=== PATIENT | male | born 1950 | race Caucasian/White ===

== ENCOUNTER → 2018-06-25 | Outpatient (CLI) | payer MEDICAID ==
[~2018-06-25] MED LIST: APIX5TAB PO; ASCO500C15 PO; AVOD0.5CAP PO; CIPR500T4 PO; FESO8TAB PO; FEXO-46 PO; IMIPRAM; LISI-556 PO; LOVA20TA2 PO; MELO7.5T46 PO; NF-VITD400 PO; PHEN-639 PO; STOOL SOFTENER; TAMS0.4C2 PO
[2018-06-25 13:00] LABS: CHLORIDE 96 MMOL/L (98-107); POTASSIUM 4.1 MMOL/L (3.6-5.0); SODIUM 136 MMOL/L (135-145)
[2018-06-25 13:01] LABS: BUN/CREATININE RATIO 22; CALCIUM 9.3 MG/DL (8.5-10.1); CARBON DIOXIDE 23 MMOL/L (21-32); CREATININE SERUM 1.15 MG/DL (0.60-1.30); GFR ESTIMATED > 60; GLUCOSE 89 MG/DL (70-105)
== END ==
LOC: LAB FS 09:04
PROVIDERS: ATTEND Urology
DX: N40.0 Benign prostatic hyperplasia without lower urinary tract symptoms (principal); N39.0 Urinary tract infection, site not specified
CPT/HCPCS: 36415; 80048; 87088

== ENCOUNTER → 2018-10-26 | Outpatient (CLI) | payer MEDICAID ==
[2018-10-26 11:23] LABS: BUN/CREATININE RATIO 29; CALCIUM 8.9 MG/DL (8.5-10.1); CARBON DIOXIDE 24 MMOL/L (21-32); CHLORIDE 92 MMOL/L (98-107); CREATININE SERUM 0.99 MG/DL (0.60-1.30); GFR ESTIMATED > 60; GLUCOSE 88 MG/DL (70-105); POTASSIUM 4.5 MMOL/L (3.6-5.0); SODIUM 129 MMOL/L (135-145)
== END ==
LOC: LAB FS 10:28
PROVIDERS: ATTEND Urology
DX: E87.1 Hypo-osmolality and hyponatremia (principal)
CPT/HCPCS: 36415; 80048

== ENCOUNTER 2019-02-01 10:35 | Outpatient (RCR) | payer MEDICAID ==
[2018-11-09 12:23] LABS: CHLORIDE 98 MMOL/L (98-107); POTASSIUM 4.4 MMOL/L (3.6-5.0); SODIUM 136 MMOL/L (135-145)
[2018-11-09 12:24] LABS: BUN/CREATININE RATIO 18; CALCIUM 9.4 MG/DL (8.5-10.1); CARBON DIOXIDE 26 MMOL/L (21-32); CREATININE SERUM 1.03 MG/DL (0.60-1.30); GFR ESTIMATED > 60; GLUCOSE 106 MG/DL (70-105)
[2018-11-23 11:38] LABS: BUN/CREATININE RATIO 29; CARBON DIOXIDE 23 MMOL/L (21-32); CHLORIDE 99 MMOL/L (98-107); CREATININE SERUM 0.92 MG/DL (0.60-1.30); GFR ESTIMATED > 60; GLUCOSE 113 MG/DL (70-105); POTASSIUM 4.3 MMOL/L (3.6-5.0); SODIUM 136 MMOL/L (135-145)
[2018-11-23 11:39] LABS: CALCIUM 9.1 MG/DL (8.5-10.1)
[2018-12-07 11:16] LABS: BUN/CREATININE RATIO 23; CARBON DIOXIDE 23 MMOL/L (21-32); CHLORIDE 96 MMOL/L (98-107); CREATININE SERUM 1.03 MG/DL (0.60-1.30); GFR ESTIMATED > 60; POTASSIUM 4.3 MMOL/L (3.6-5.0); SODIUM 135 MMOL/L (135-145)
[2018-12-07 11:17] LABS: GLUCOSE 103 MG/DL (70-105)
[2018-12-22 11:17] LABS: BUN/CREATININE RATIO 34; CARBON DIOXIDE 25 MMOL/L (21-32); CHLORIDE 102 MMOL/L (98-107); CREATININE SERUM 1.08 MG/DL (0.60-1.30); GFR ESTIMATED > 60; POTASSIUM 4.3 MMOL/L (3.6-5.0); SODIUM 138 MMOL/L (135-145)
[2018-12-22 11:18] LABS: CALCIUM 9.1 MG/DL (8.5-10.1); GLUCOSE 114 MG/DL (70-105)
[2019-01-04 14:44] LABS: CARBON DIOXIDE 24 MMOL/L (21-32); CHLORIDE 98 MMOL/L (98-107); POTASSIUM 4.4 MMOL/L (3.6-5.0); SODIUM 136 MMOL/L (135-145)
[2019-01-04 14:45] LABS: BUN/CREATININE RATIO 29; CALCIUM 9.9 MG/DL (8.5-10.1); CREATININE SERUM 0.95 MG/DL (0.60-1.30); GFR ESTIMATED > 60; GLUCOSE 127 MG/DL (70-105)
[2019-01-18 12:44] LABS: CARBON DIOXIDE 22 MMOL/L (21-32); CHLORIDE 96 MMOL/L (98-107); POTASSIUM 4.1 MMOL/L (3.6-5.0); SODIUM 130 MMOL/L (135-145)
[2019-01-18 12:45] LABS: BUN/CREATININE RATIO 31; CREATININE SERUM 0.83 MG/DL (0.60-1.30); GFR ESTIMATED > 60; GLUCOSE 117 MG/DL (70-105)
[2019-02-01 11:28] LABS: CHLORIDE 96 MMOL/L (98-107); POTASSIUM 4.6 MMOL/L (3.6-5.0); SODIUM 131 MMOL/L (135-145)
[2019-02-01 11:29] LABS: BUN/CREATININE RATIO 30; CALCIUM 8.8 MG/DL (8.5-10.1); CARBON DIOXIDE 25 MMOL/L (21-32); CREATININE SERUM 0.88 MG/DL (0.60-1.30); GFR ESTIMATED > 60; GLUCOSE 103 MG/DL (70-105)
== END 2019-02-07 | disposition home or self-care (01) ==
LOC: LAB FS 10:35
PROVIDERS: ATTEND Urology
DX: R79.0 Abnormal level of blood mineral (principal)
CPT/HCPCS: 36415; 80048

== ENCOUNTER 2019-02-17 18:56 | Emergency (ER) | payer MEDICAID ==
[~2019-02-17] VITALS: Ht 165.1 cm; Wt 68.3 kg
--- NOTE | 2019-02-17 19:40 | ED EENT ---
History of Present Illness General Chief Complaint: Dental Problems/Pain Stated Complaint: LT SIDE TOOTH BLEEDING Nursing Triage Note: pt. had a tooth pulled by doctor brennan at noon today in [place]. the upper left side first molar was pulled and is still bleeding. Source: patient History of Present Illness Date Seen by Provider: Feb 17, 2019 Time Seen by Provider: 19:40 Initial Comments 68-year-old male presenting with complaint of bleeding from left upper dental extraction. He had a tooth pulled with Dr. Kathya Kim today and has had continued bleeding since the extraction. They have tried holding pressure with gauze at home but he has continued to bleed through that. He was on Eliquis but it was held since Friday. He has a history of atrial fibrillation and that was why he was taking eliquis. He denies any fever or chills. He has no nausea or vomiting. Allergies and Home Medications Allergies Coded Allergies: codeine (Verified Adverse Reaction, Mild, NAUSEA, 09/03/17) Home Medications Apixaban 5 Mg Tablet, 5 MG PO BID, (Reported) Ciprofloxacin HCl 500 Mg Tablet, 500 MG PO BID Prescribed by: FIGUEROA CALVIN on 09/03/17 1146 Dutasteride 0.5 Mg Cap, 0.5 MG PO DAILY, (Reported) Fesoterodine Fumarate 8 Mg Tab.er.24h, 8 MG PO DAILY, (Reported) Lisinopril 5 Mg Tablet, 5 MG PO DAILY, (Reported) Phenazopyridine HCl 100 Mg Tablet, 100 MG PO TID PRN for SPASMS Prescribed by: FIGUEROA CALVIN on 09/03/17 1146 [Imipram] , 75 MG HS, (Reported) Patient Home Medication List Home Medication List Reviewed: Yes Review of Systems Review of Systems Constitutional: No chills, No fever Eyes: No Symptoms Reported Ears: No Symptoms Reported Nose: no symptoms reported Mouth: see HPI Throat: no symptoms reported Respiratory: no symptoms reported Cardiovascular: no symptoms reported Gastrointestinal: no symptoms reported Musculoskeletal: no symptoms reported Past Hxlgibh-Lxwhgq-Ybjkjr Hx Past Med/Social Hx: Reviewed Nursing Past Med/Soc Hx Patient Social History Recent Foreign Travel: No Contact w/Someone Who Travel: No Recent Infectious Disease Expo: No Recent Hopitalizations: No Physical Abuse: No Sexual Abuse: No Mistreated: No Fear: No Seasonal Allergies Seasonal Allergies: Yes Past Medical History Surgeries: Yes Gallbladder Respiratory: No Cardiac: Yes Atrial Fibrillation, Heart Murmur Neurological: No Genitourinary: Yes UTI-Chronic Gastrointestinal: No Musculoskeletal: Yes (STENOSIS OF THE SPINE) Foot Drop Endocrine: Yes (THYROID ISSUES) HEENT: Yes Cataract Psychosocial: No Integumentary: Yes Psoriasis Physical Exam Vital Signs Vital Signs - First Documented 02/17/19 19:00 Temp 35.8 Pulse 70 Resp 16 B/P (MAP) 127/78 (94) Pulse Ox 98 O2 Delivery Room Air Height, Weight, BMI Height: 5'5.00" Weight: 152lbs. oz. [id number]; 25.00 BMI Method:Stated General Appearance: no apparent distress Mouth/Throat: other (bleeding and clot present where he had dental extraction on left upper maxillary area. ) Neck: non-tender Cardiovascular: normal peripheral pulses Progress/Results/Core Measures Results/Orders My Orders Orders - CLIFF SUAREZ MD Nursing Communication (Order) (02/17/19 21:18) Vital Signs/I&O 02/17/19 19:00 Temp 35.8 Pulse 70 Resp 16 B/P (MAP) 127/78 (94) Pulse Ox 98 O2 Delivery Room Air Blood Pressure Mean: 94 POS Progress Progress Note : Progress Note cleaned mouth with sterile water and gauze. Then applied gelfoam and pressure to control bleeding. After 5 minutes of direct pressure with gelfoam in place the bleeding was controlled. I then had him gently rinse his mouth to get blood and clots off his tongue and teeth. By doing this he accidentally dislodged the gelfoam and clot and started bleeding again from his dental extraction. I applied a new piece of gelfoam and applied pressure for 5 minutes again and the bleeding was controlled except for a small amount of oozing towards the buccal surface. Another small piece of Gelfoam was applied and I held direct pressure for 5 minutes which helped obtain better hemostasis. He had a very small amount of blood seeping from the buccal area so a small 2x2 was rolled up and placed for pressure. He was significantly better so he was discharged to home in improved condition. His sister, his DPOA, felt comfortable helping to manage the small amount of residual bleeding. I advised that he could also try a tea bag to help with bleeding if need be. Hold Eliquis for 1 more day and start back on friday. Return or seek medical care if continued problems. Departure Impression Primary Impression: Surgical wound hemorrhage after dental procedure Disposition: 01 HOME, SELF-CARE Condition: Stable Departure-Patient Inst. Decision time for Depature: 21:22 Referrals: SELFDANNA MD (PCP/Family) Primary Care Physician Patient Instructions: Bleeding After Surgery, Tooth Extraction (DC) Add. Discharge Instructions: Keep pressure and gauze in place when awake to help with bleeding. Hold the Eliquis until Friday to let the dental extraction heal before starting the blood thinner back again. All discharge instructions reviewed with patient and/or family. Voiced und erstanding. CLIFF SUAREZ MD Feb 17, 2019 19:40 POS
--- NOTE | 2019-02-17 20:32 | NUR ---
PT. RINSED HIS MOUTH WITH WATER GENTLY TO REMOVE THE BLOOD FROM HIS TONGUE AND THE PATCH DOCTOR DANIELA PLACED CAME OUT AND NOW THE SIGHT IS BLEEDING AGAIN. PT. HAS GAUZE PLACED AT THIS TIME.
[2019-02-17 21:23] VITALS: BP 145/78
--- NOTE | 2019-02-17 21:23 | NUR ---
GEL FOAM WAS USED TO STOP THE BLEEDING. PACKAGE 12-7 MM.
== END 2019-02-17 21:25 | disposition home or self-care (01) ==
LOC: EDUNIT# 18:56 → ER FS 18:57
DX: K91.840 Postprocedural hemorrhage of a digestive system organ or structure following a digestive system procedure (principal); I48.91 Unspecified atrial fibrillation; Z87.442 Personal history of urinary calculi; Z88.5 Allergy status to narcotic agent; Z79.01 Long term (current) use of anticoagulants
CPT/HCPCS: 99282

== ENCOUNTER 2019-04-26 10:35 | Outpatient (RCR) | payer MEDICAID ==
[2019-02-15 11:15] LABS: CALCIUM 9.4 MG/DL (8.5-10.1); CREATININE SERUM 1.2 MG/DL (0.60-1.30); POTASSIUM 4.3 MMOL/L (3.6-5.0)
[2019-03-03 11:51] LABS: BUN/CREATININE RATIO 29; CALCIUM 9.1 MG/DL (8.5-10.1); CARBON DIOXIDE 28 MMOL/L (21-32); CHLORIDE 98 MMOL/L (98-107); CREATININE SERUM 1.02 MG/DL (0.60-1.30); GFR ESTIMATED > 60; GLUCOSE 98 MG/DL (70-105); POTASSIUM 4.1 MMOL/L (3.6-5.0); SODIUM 137 MMOL/L (135-145)
[2019-03-15 11:26] LABS: BUN/CREATININE RATIO 24; CALCIUM 9.2 MG/DL (8.5-10.1); CARBON DIOXIDE 27 MMOL/L (21-32); CHLORIDE 103 MMOL/L (98-107); GFR ESTIMATED > 60; GLUCOSE 108 MG/DL (70-105); POTASSIUM 4.4 MMOL/L (3.6-5.0); SODIUM 138 MMOL/L (135-145)
[2019-04-26 11:10] LABS: BUN/CREATININE RATIO 29; CARBON DIOXIDE 27 MMOL/L (21-32); CHLORIDE 99 MMOL/L (98-107); CREATININE SERUM 1.06 MG/DL (0.60-1.30); GFR ESTIMATED > 60; GLUCOSE 105 MG/DL (70-105); SODIUM 136 MMOL/L (135-145)
== END 2019-05-16 | disposition home or self-care (01) ==
LOC: LAB FS 10:35
PROVIDERS: ATTEND Urology
DX: R79.0 Abnormal level of blood mineral (principal)
CPT/HCPCS: 36415; 80048

== ENCOUNTER 2019-06-15 10:19 | Outpatient (RCR) | payer MEDICAID ==
[2019-05-17 11:27] LABS: CARBON DIOXIDE 27 MMOL/L (21-32); CHLORIDE 100 MMOL/L (98-107); POTASSIUM 4.4 MMOL/L (3.6-5.0); SODIUM 139 MMOL/L (135-145)
[2019-05-17 11:28] LABS: BUN/CREATININE RATIO 26; CALCIUM 9.2 MG/DL (8.5-10.1); CREATININE SERUM 1.03 MG/DL (0.60-1.30); GFR ESTIMATED > 60; GLUCOSE 89 MG/DL (70-105)
[2019-06-15 12:08] LABS: BUN/CREATININE RATIO 28; CALCIUM 9.3 MG/DL (8.5-10.1); CARBON DIOXIDE 29 MMOL/L (21-32); CHLORIDE 99 MMOL/L (98-107); GFR ESTIMATED > 60; GLUCOSE 95 MG/DL (70-105); POTASSIUM 4.4 MMOL/L (3.6-5.0); SODIUM 137 MMOL/L (135-145)
== END 2019-08-15 | disposition home or self-care (01) ==
LOC: LAB FS 10:19
PROVIDERS: ATTEND Urology
DX: R79.0 Abnormal level of blood mineral (principal)
CPT/HCPCS: 36415; 80048

== ENCOUNTER → 2019-09-24 | Outpatient (CLI) | payer MEDICAID ==
[2019-09-24 15:11] LABS: BUN/CREATININE RATIO 28; CALCIUM 8.6 MG/DL (8.5-10.1); CARBON DIOXIDE 20 MMOL/L (21-32); CHLORIDE 91 MMOL/L (98-107); CREATININE SERUM 0.79 MG/DL (0.60-1.30); GFR ESTIMATED > 60; GLUCOSE 116 MG/DL (70-105); POTASSIUM 4.3 MMOL/L (3.6-5.0)
[2019-09-24 15:17] LABS: SODIUM 125 MMOL/L (135-145)
[2019-09-24 15:26] LABS: BACTERIA,URINE TRACE /HPF; BILIRUBIN,URINE NEGATIVE (NEGATIVE); CLARITY,URINE CLEAR; COLOR,URINE YELLOW; GLUCOSE, URINE (UA) NEGATIVE (NEGATIVE); KETONES,URINE NEGATIVE (NEGATIVE); LEUKOCYTE ESTERASE ,URINE NEGATIVE (NEGATIVE); NITRITE,URINE NEGATIVE (NEGATIVE); PROTEIN,URINE NEGATIVE (NEGATIVE)
[2019-09-24 15:27] LABS: CALCIUM OXALATE CRYSTALS,UR MODERATE /LPF
== END ==
LOC: LAB FS 13:38
PROVIDERS: ATTEND Urology
DX: N40.1 Benign prostatic hyperplasia with lower urinary tract symptoms (principal)
CPT/HCPCS: 36415; 80048; 81000; 84153

== ENCOUNTER → 2019-09-30 | Outpatient (CLI) | payer MEDICAID ==
[2019-09-30 15:41] LABS: CHLORIDE 101 MMOL/L (98-107); POTASSIUM 4.4 MMOL/L (3.6-5.0); SODIUM 138 MMOL/L (135-145)
[2019-09-30 15:42] LABS: BUN/CREATININE RATIO 25; CALCIUM 9.2 MG/DL (8.5-10.1); CARBON DIOXIDE 25 MMOL/L (21-32); CREATININE SERUM 0.96 MG/DL (0.60-1.30); GFR ESTIMATED > 60; GLUCOSE 108 MG/DL (70-105)
== END ==
LOC: LAB FS 14:38
PROVIDERS: ATTEND Urology
DX: E87.8 Other disorders of electrolyte and fluid balance, not elsewhere classified (principal)
CPT/HCPCS: 36415; 80048

== ENCOUNTER 2020-06-04 14:31 | Emergency (ER) | payer MEDICAID ==
[~2020-06-04] VITALS: Ht 167.7 cm; Wt 74.4 kg
[~2020-06-04 14:31] MED LIST changes: -ASCO500C15 PO; +ASCO500C18 PO; -CIPR500T4 PO; +CIPR500T5 PO; -LISI-556 PO; +LISI-729 PO
[2020-06-04] MEDS ORDERED: fentaNYL INJECTION 100 MCG/2 ML AMP IVP ONE (15:00)
[2020-06-04] MEDS ORDERED: ONDANSETRON 4 MG/2 ML (SDV) Z0FRAN IVP ONE (15:00)
[2020-06-04 15:08] LABS: HEMATOCRIT 47 % (40-54); HEMOGLOBIN 16.1 G/DL (13.3-17.7); LYMPHOCYTES % (AUTO) 3 % (12-44); MEAN CORPUSCULAR HEMOGLOBIN 32 PG (25-34); MEAN CORPUSCULAR HGB CONC 34 G/DL (32-36); MEAN CORPUSCULAR VOLUME 94 FL (80-99); MEAN PLATELET VOLUME 9.5 FL (7.4-10.4); MONOCYTES % (AUTO) 5 % (0-12); NEUTROPHILS % (AUTO) 91 % (42-75); PLATELET COUNT 278 10^3/uL (130-400); WHITE BLOOD COUNT 15.7 10^3/uL (4.3-11.0)
[2020-06-04 15:09] LABS: BASOPHILS % (AUTO) 0 % (0-10); EOSINOPHILS % (AUTO) 0 % (0-10); LYMPHOCYTES # (AUTO) 0.5 X 10^3 (1.0-4.0); MONOCYTES # (AUTO) 0.8 X 10^3 (0.0-1.0); NEUTROPHILS # (AUTO) 14.3 X 10^3 (1.8-7.8)
[2020-06-04 15:24] LABS: LYMPHOCYTES % (MANUAL) 2 %; MONOCYTES % (MANUAL) 4 %; NEUTROPHILS % (MANUAL) 94 %; RBC MORPH NORMAL
[2020-06-04 15:34] LABS: CHLORIDE 100 MMOL/L (98-107); POTASSIUM 4.6 MMOL/L (3.6-5.0); SODIUM 139 MMOL/L (135-145)
[2020-06-04 15:35] LABS: ALANINE AMINOTRANSFERASE 40 U/L (0-55); ALBUMIN 4.3 GM/DL (3.2-4.5); ALKALINE PHOSPHATASE 76 U/L (40-136); BILIRUBIN,TOTAL 0.7 MG/DL (0.1-1.0); BUN/CREATININE RATIO 35; CALCIUM 9.1 MG/DL (8.5-10.1); CARBON DIOXIDE 25 MMOL/L (21-32); CREATININE SERUM 0.94 MG/DL (0.60-1.30); GFR ESTIMATED > 60; GLUCOSE 156 MG/DL (70-105); TOTAL PROTEIN 7.6 GM/DL (6.4-8.2)
--- NOTE | 2020-06-04 15:42 | Diagnostic Imaging Report ---
INDICATION: Trauma, status post fall, caught left arm in wheelchair x 7 hours ago. TECHNIQUE: Single view chest, 3:12 p.m. CORRELATION STUDY: None. FINDINGS: Heart size is enlarged. Vasculature overall within normal limits. Elevated right diaphragm. Minimal atelectasis at the right lung base. No significant infiltrate, effusion or pneumothorax. No displaced fracture. IMPRESSION: Negative for acute traumatic abnormality of the chest. Cardiac enlargement without overt failure. Dictated by: Dictated on workstation # [id number]
--- NOTE | 2020-06-04 15:43 | Diagnostic Imaging Report ---
INDICATION: Trauma, post fall, caught left arm in a wheelchair x 7 hours ago. TECHNIQUE: Three views of the left shoulder. CORRELATION STUDY: None. FINDINGS: The glenohumeral and acromioclavicular alignment are maintained and unremarkable. Lucency through the left humeral head likely overlapping summation shadow. There is no evidence for acute fracture or dislocation. The visualized soft tissues are unremarkable. IMPRESSION: Negative for acute bony abnormality about the shoulder. Dictated by: Dictated on workstation # [id number]
--- NOTE | 2020-06-04 15:50 | Diagnostic Imaging Report ---
PROCEDURE: CT cervical spine without contrast. TECHNIQUE: Multiple contiguous axial images were obtained through the cervical spine without the use of intravenous contrast. Sagittal and coronal reformations were then performed. Auto Exposure Controls were utilized during the CT exam to meet ALARA standards for radiation dose reduction. INDICATION: Status post fall out of wheelchair 7 hours ago. CORRELATION STUDY: None. FINDINGS: Examination compromised by motion artifact. Reformatted images demonstrate trace likely degenerative retrolisthesis of C4 on C5 and to a lesser degree C5 on C6. The vertebral body heights appear maintained without evidence for acute fracture. There is severe disc space narrowing at the C2-C3 and C4-C5 levels. Additionally, at least moderate narrowing of the remaining disc spaces as well. There is incomplete closure of the posterior C1 ring, likely developmental and/or congenital. Asymmetric areas of hypertrophic facet arthropathy. Various degrees of osseous encroachment about the canal and foramina are present. Spinal canal stenosis is rather significant at the C4-C5 level where there is narrowing of the canal to 5-6 mm. Additional but slightly less severe spinal canal stenosis at the C5-C6 level at the under 8 mm. IMPRESSION: 1. Compromised examination due to motion artifact. 2. No evidence for acute fracture. 3. There are areas of rather severe cervical spondylosis essentially all levels of the cervical spine. There is marked spinal canal stenosis likely owing to degenerative changes at the C4- C5 and C5-C6 levels. Given the severity of canal stenosis would likely result in potential mass effect upon the cord. If further evaluation is desired, MRI would be recommended. Dictated by: Dictated on workstation # [id number]
--- NOTE | 2020-06-04 16:56 | ED General ---
General Chief Complaint: Trauma-Non Activation Stated Complaint: FALL Nursing Triage Note: EMS presents to ER reporting 911 call from a photo mask cleaner finding patient trapped inside his wheeled walker partially standing/leaning between dresser and a wall. Report pt had a blue left arm on initial contact. Refer to ED Trauma Flow Sheet for areas of injury. Nursing Sepsis Screen: No Definite Risk History of Present Illness Date Seen by Provider: Jun 04, 2020 Time Seen by Provider: 14:00 Initial Comments Patient is a 70-year-old male who lives at home who presents with left upper extremity weakness and injury after being trapped for several hours between a wheelchair and a dresser wall. Patient lives by himself and was not discovered until this morning when a family member visit. EMS noted a cyanotic left upper extremity that was pulseless on their arrival. After releasing mechanical compression, the patient was able to regain circulation with good radial pulse and cap refill but continues to have loss of sensation and motor function to the extremity. Patient also has superficial abrasions over his left anterior chest wall. He denies hitting his head or having midline neck pain. Patient is anticoagulated on Eliquis for treatment of atrial fibrillation. Patient reports tripping resulting in a mechanical fall.. Location Injury Occurred: pt's home Timing/Duration: 4-6 Hours Severity: Moderate Modifying Factors: improves with Other Associated Systoms: Other Allergies and Home Medications Allergies Coded Allergies: codeine (Verified Adverse Reaction, Mild, NAUSEA, 09/03/17) Home Medications Apixaban 5 Mg Tablet, 5 MG PO BID, (Reported) Ciprofloxacin HCl 500 Mg Tablet, 500 MG PO BID Prescribed by: FIGUEROA CALVIN on 09/03/17 1146 Dutasteride 0.5 Mg Cap, 0.5 MG PO DAILY, (Reported) Fesoterodine Fumarate 8 Mg Tab.er.24h, 8 MG PO DAILY, (Reported) Lisinopril 5 Mg Tablet, 5 MG PO DAILY, (Reported) Phenazopyridine HCl 100 Mg Tablet, 100 MG PO TID PRN for SPASMS Prescribed by: FIGUEROA CALVIN on 09/03/17 1146 [Imipram] , 75 MG HS, (Reported) Patient Home Medication List Home Medication List Reviewed: Yes Review of Systems Review of Systems Constitutional: see HPI EENTM: see HPI Respiratory: see HPI Cardiovascular: see HPI Gastrointestinal: see HPI Musculoskeletal: see HPI Skin: see HPI Psychiatric/Neurological: See HPI Hematologic/Lymphatic: See HPI Immunological/Allergic: see HPI All Other Systems Reviewed Negative Unless Noted: Yes Past Xozlfea-Hmtcqx-Ioaffm Hx Past Med/Social Hx: Reviewed Nursing Past Med/Soc Hx Patient Social History Alcohol Use: Denies Use Smoking Status: Never a Smoker 2nd Hand Smoke Exposure: No Recent Infectious Disease Expo: No Recent Hopitalizations: No Immunizations Up To Date Tetanus Booster (TDap): Unknown Seasonal Allergies Seasonal Allergies: Yes Past Medical History Surgeries: Yes Gallbladder Respiratory: No Cardiac: Yes Atrial Fibrillation, Heart Murmur Neurological: No Genitourinary: Yes UTI-Chronic Gastrointestinal: No Musculoskeletal: Yes (STENOSIS OF THE SPINE) Foot Drop Endocrine: Yes (THYROID ISSUES) HEENT: Yes Cataract Psychosocial: No Integumentary: Yes Psoriasis Physical Exam Vital Signs Vital Signs - First Documented Capillary Refill : Less Than 3 Seconds Height, Weight, BMI Height: 5'5.00" Weight: 152lbs. oz. [id number]; 26.00 BMI Method:Stated General Appearance: No Apparent Distress, Anxious Eyes: Bilateral Eye Normal Inspection, Bilateral Eye EOMI HEENT: PERRL/EOMI, Normal ENT Inspection, Pharynx Normal Neck: Supple, Other (No midline tenderness) Respiratory: Chest Non Tender, Lungs Clear Cardiovascular: Regular Rate, Rhythm, Other (Bounding radial pulse left upper extremity) Gastrointestinal: Non Tender, Soft Back: Normal Inspection, No CVA Tenderness Extremity: Other (Bruising to left forearm with petechia swelling to left wrist extending to mid forearm. No gross or fine motor function on ) Neurologic/Psychiatric: Alert, Oriented x3, Other (Loss of gross and fine motor function to the left upper extremity. Partial return of finger motor function on reevaluation.) Skin: Other (Discoloration of left upper extremity) Focused Exam Sepsis Stage: Ruled Out Lactate Level 06/04/20 14:47: Lactic Acid Level 2.48*H 06/04/20 16:47: Lactic Acid Level Laboratory Tests Test 06/04/20 14:47 06/04/20 16:47 Lactic Acid Level 2.48 MMOL/L (0.50-2.00) *H Progress/Results/Core Measures Suspected Sepsis Recent Fever Within 48 Hours: No Infection Criteria Present: None New/Unexplained Altered Menta: No Sepsis Screen: No Definite Risk SIRS Temperature: Pulse: 80 Respiratory Rate: 20 Laboratory Tests 06/04/20 14:47: White Blood Count 15.7H Blood Pressure 109 /67 Mean: 81 06/04/20 14:47: Lactic Acid Level 2.48*H 06/04/20 16:47: Laboratory Tests 06/04/20 14:47: Creatinine 0.94, Platelet Count 278, Total Bilirubin 0.7 Results/Orders Lab Results Laboratory Tests Test 06/04/20 14:47 06/04/20 16:47 Range/Units White Blood Count 15.7 H 4.3-11.0 10^3/uL Red Blood Count 5.03 4.35-5.85 10^6/uL Hemoglobin 16.1 13.3-17.7 G/DL Hematocrit 47 40-54 % Mean Corpuscular Volume 94 80-99 FL Mean Corpuscular Hemoglobin 32 25-34 PG Mean Corpuscular Hemoglobin Concent 34 32-36 G/DL Red Cell Distribution Width 13.8 10.0-14.5 % Platelet Count 278 130-400 10^3/uL Mean Platelet Volume 9.5 7.4-10.4 FL Immature Granulocyte % (Auto) 0 % Neutrophils (%) (Auto) 91 H 42-75 % Lymphocytes (%) (Auto) 3 L 12-44 % Monocytes (%) (Auto) 5 0-12 % Eosinophils (%) (Auto) 0 0-10 % Basophils (%) (Auto) 0 0-10 % Neutrophils # (Auto) 14.3 H 1.8-7.8 X 10^3 Lymphocytes # (Auto) 0.5 L 1.0-4.0 X 10^3 Monocytes # (Auto) 0.8 0.0-1.0 X 10^3 Eosinophils # (Auto) 0.0 0.0-0.3 10^3/uL Basophils # (Auto) 0.0 0.0-0.1 10^3/uL Immature Granulocyte # (Auto) 0.1 0.0-0.1 10^3/uL Neutrophils % (Manual) 94 % Lymphocytes % (Manual) 2 % Monocytes % (Manual) 4 % Blood Morphology Comment NORMAL Sodium Level 139 135-145 MMOL/L Potassium Level 4.6 3.6-5.0 MMOL/L Chloride Level 100 98-107 MMOL/L Carbon Dioxide Level 25 21-32 MMOL/L Anion Gap 14 5-14 MMOL/L Blood Urea Nitrogen 33 H 7-18 MG/DL Creatinine 0.94 0.60-1.30 MG/DL Estimat Glomerular Filtration Rate > 60 BUN/Creatinine Ratio 35 Glucose Level 156 H 70-105 MG/DL Lactic Acid Level 2.48 *H 0.50-2.00 MMOL/L Calcium Level 9.1 8.5-10.1 MG/DL Corrected Calcium 8.9 8.5-10.1 MG/DL Total Bilirubin 0.7 0.1-1.0 MG/DL Aspartate Amino Transf (AST/SGOT) 69 H 5-34 U/L Alanine Aminotransferase (ALT/SGPT) 40 0-55 U/L Alkaline Phosphatase 76 40-136 U/L Total Protein 7.6 6.4-8.2 GM/DL Albumin 4.3 3.2-4.5 GM/DL My Orders Orders - ASHELY WILLIAMSON DO Cbc With Automated Diff (06/04/20 14:54) Comprehensive Metabolic Panel (06/04/20 14:54) Creatine Kinase (06/04/20 14:54) Chest 1 View Ap/Pa Only (06/04/20 14:54) Shoulder 3 View Left (06/04/20 14:54) Ct Cervical Spine Wo (06/04/20 14:54) Cbc And Manual Diff (06/04/20 14:54) Lactic Acid Analyzer (06/04/20 14:54) Fentanyl Injection (Sublimaze Injection (06/04/20 15:00) Ondansetron Injection (Zofran Injectio (06/04/20 15:00) Urinalysis (06/04/20 14:56) Medications Given in ED Current Medications Medications Dose Ordered Sig/Olman Route Start Time Stop Time Status Last Admin Dose Admin Fentanyl Citrate 50 mcg ONCE ONCE IVP 06/04/20 15:00 06/04/20 15:01 DC 06/04/20 15:02 50 MCG Ondansetron HCl 4 mg ONCE ONCE IVP 06/04/20 15:00 06/04/20 15:01 DC 06/04/20 15:01 4 MG Vital Signs/I&O 06/04/20 06/04/20 14:33 14:33 Temp 36.5 36.5 Pulse 80 80 Resp 20 20 B/P (MAP) 109/67 (81) 109/67 (81) Pulse Ox 96 96 O2 Delivery Room Air Room Air Capillary Refill : Less Than 3 Seconds Blood Pressure Mean: 81 Departure Communication (Admissions) Patient with compression injury of left upper extremity with limb ischemia resulting in paralysis and loss of sensation. Pulses are noted throughout. Patient does not have tense forearm or arm suggesting compartment syndrome. There are no acute injuries noted on imaging of cervical spine, or fracture involving, left shoulder, arm, forearm.. CK lab testing is currently unavailable. Lactic acid elevated. There is no orthopedic or vascular coverage at [facility] emergency department/hospital. Dr. Dimas accepts to [facility] emergency department on [address] for trauma evaluation. Impression Primary Impression: Ischemia of left upper extremity Disposition: XFER SHT-TRM HOSP Condition: Stable Transfer Method of Transfer: EMS Departure-Patient Inst. Decision time for Depature: 17:02 Referrals: DANNA BILL MD (PCP/Family) Primary Care Physician ASHELY WILLIAMSON DO Jun 04, 2020 16:56
[2020-06-04 17:28] LABS: BACTERIA,URINE NEGATIVE /HPF; BILIRUBIN,URINE NEGATIVE (NEGATIVE); CLARITY,URINE CLEAR; COLOR,URINE YELLOW; GLUCOSE, URINE (UA) NEGATIVE (NEGATIVE); KETONES,URINE 1+ (NEGATIVE); LEUKOCYTE ESTERASE ,URINE NEGATIVE (NEGATIVE); NITRITE,URINE NEGATIVE (NEGATIVE); PH,URINE 6.5 (5-9); PROTEIN,URINE NEGATIVE (NEGATIVE); SQUAMOUS EPITHELIAL CELL,UR 0-2 /HPF
[2020-06-04 19:41] VITALS: BP 124/82
[2020-06-04 20:09] LABS: CREATINE KINASE 5829 U/L (30-200)
== END 2020-06-04 18:15 | disposition short-term general hospital (02) ==
LOC: EDUNIT# 14:31 → ER FS 14:32
DX: I99.8 Other disorder of circulatory system (principal); F41.9 Anxiety disorder, unspecified; I48.91 Unspecified atrial fibrillation; Z88.5 Allergy status to narcotic agent; Z79.01 Long term (current) use of anticoagulants
CPT/HCPCS: 36415; 71045; 72125; 73030; 80053; 81000; 82550; 83605; 85007; 85025; 85027; 93005

== ENCOUNTER → 2020-07-10 | Outpatient (CLI) | payer MEDICAID ==
[2020-07-10 17:16] LABS: HEMATOCRIT 41 % (40-54); HEMOGLOBIN 13.8 G/DL (13.3-17.7); MEAN CORPUSCULAR HEMOGLOBIN 32 PG (25-34); MEAN CORPUSCULAR VOLUME 96 FL (80-99); WHITE BLOOD COUNT 10.5 10^3/uL (4.3-11.0)
[2020-07-10 17:17] LABS: BASOPHILS % (AUTO) 0 % (0-10); EOSINOPHILS # (AUTO) 0.3 10^3/uL (0.0-0.3); EOSINOPHILS % (AUTO) 2 % (0-10); LYMPHOCYTES # (AUTO) 1.2 X 10^3 (1.0-4.0); LYMPHOCYTES % (AUTO) 11 % (12-44); MEAN CORPUSCULAR HGB CONC 34 G/DL (32-36); MEAN PLATELET VOLUME 10.2 FL (7.4-10.4); MONOCYTES # (AUTO) 1.2 X 10^3 (0.0-1.0); MONOCYTES % (AUTO) 12 % (0-12); NEUTROPHILS # (AUTO) 7.8 X 10^3 (1.8-7.8); NEUTROPHILS % (AUTO) 74 % (42-75); PLATELET COUNT 230 10^3/uL (130-400)
[2020-07-10 18:46] LABS: INR 1.2 (0.8-1.4); PROTHROMBIN TIME PATIENT 15.1 SEC (12.2-14.7)
== END ==
PROVIDERS: ATTEND Family Medicine
DX: Z79.01 Long term (current) use of anticoagulants (principal)
CPT/HCPCS: 36415; 85025; 85610; 85730

== ENCOUNTER 2021-01-14 02:50 | Emergency (ER) | payer MEDICAID ==
[2021-01-14 02:51] VITALS: BP 120/64
--- OUTSIDE RECORDS SUMMARY | 2021-01-14 02:54 | XMS REPORT | Clinical Summary ---
Author Author [facility] Organization [facility] Address Unknown Phone Unavailable Care Team Providers Care Medical Office Clerk Name Role Phone Self, Lefty OSCAR PCP Allergies Comments Active Allergy Reactions Severity Noted Date Codeine 06/04/2020 Tramadol 06/04/2020 Medications End Date Status Medication Sig Dispensed Refills Start Date Active melatonin 3 mg Tab tablet Take 1 tablet 0 05/22 (3 mg total) 1 by mouth nightly as needed. Active pravastatin (PRAVACHOL) Take 1 tablet 0 40 MG tablet (40 mg total) 1 by mouth nightly. Active dutasteride (AVODART) 0.5 Take 0.5 mg 0 mg capsule by mouth daily. Active tamsulosin (FLOMAX) 0.4 Take 0.4 mg 0 mg cap by mouth daily. Active apixaban (ELIQUIS) 5 mg Take 5 mg by 0 tablet mouth 2 (two) times a day. Active acetaminophen (TYLENOL) Take 2 0 500 MG tablet tablets 1 (1,000 mg total) by mouth every 8 (eight) hours. Active gabapentin (NEURONTIN) Take 1 0 //2 02 300 MG capsule (300 1 capsuleIndications: mg total) by neuropathic pain mouth 2 (two) times a day. Active polyethylene glycol Take 1 packet 14 each 0 03/0 (GLYCOLAX) 17 gram packet (17 g total) 1 by mouth daily. Active magnesium hydroxide (MILK Take 15-30 mL 0 03/0 OF MAGNESIA) 400 mg/5 mL by mouth 1 suspension every 6 (six) hours as needed ((1st line)). Active bisacodyL (DULCOLAX) 10 Insert 1 0 mg suppository suppository 1 (10 mg total) into the rectum daily as needed ((2nd line) if no results from magnesium hydroxide). Active ondansetron (ZOFRAN) 4 MG Take 1 tablet 0 03/0 tablet (4 mg total) 1 by mouth every 6 (six) hours as needed. Active baclofen (LIORESAL) 10 MG Take 1 tablet 0 03/0 tablet (10 mg total) 1 by mouth 3 (three) times a day. Active cyanocobalamin 1,000 Inject 1 mL 1 mL 0 06/26 mcg/mL injection (1,000 mcg 1 total) intramuscular ly weekly. Active fluocinonide (LIDEX) 0.05 Apply 30 g 0 % ointment topically 2 1 (two) times a day. Active senna-docusate Take 2 0 (PERICOLACE) 8.6-50 tablets by 1 mgIndications: mouth 2 (two) constipation times a day. Active sertraline (ZOLOFT) 50 mg Take 50 mg by 0 tablet mouth daily. 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 cerebral palsy -PT/OT/ST, VTE, Pain control/Rehab effo rts per PM&R -continue robaxin Neuropraxia of upper extremity, left, initial encount er 06/04/2020 Last Assessment & Plan: Formatting of this note might be differ ent from the original. S/P crush injury CT head and C-spine negative at outpati ent facility X-ray of wrist and elbow negative for f x Seen by Neurology in acute -PT -No IV sticks or blood draws from left extremity -F/U with Neurology consider EMG if sym ptoms do not improve in 4 weeks Compression injury 06/04/2020 Overview: Formatting of this note might be differ ent from the original. LUE compression injury Last Assessment & Plan: Formatting of this note might be differ ent from the original. 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 Per chart Patient reports no PUBLIC HEALTH DIRECTOR meds TSH, Free T4 wnl 06/12 -follow up with PCP as oP Atrial fibrillation 07/15/2014 Last Assessment & Plan: Formatting of this note might be differ ent from the original. Chronic PUBLIC HEALTH DIRECTOR eliquis, no rate control meds per p atient Rate controlled -Continue eliquis -Monitor HR with routine vitals Sepsis due to urinary tract infection 07/15/2014 Abnormal gait 03/14/2014 OM (onychomycosis) 08/13/2013 Seasonal allergic rhinitis 07/21/2013 Hypertension 05/27/2013 Last Assessment & Plan: Formatting of this note might be differ ent from the original. SBP trends improved since stopping Evelyne nopril, soft 06/19 asymptomatic PUBLIC HEALTH DIRECTOR lisinopril 5mg daily -continue to Hold lisinopril for now -Monitor and restart ACEi as BP tolerat es Foot drop 05/27/2013 Sciatica 01/15/2011 Benign prostatic hyperplasia 05/08/2009 Hyperlipidemia 05/10/2008 Chronic anticoagulation Resolved Problems Problem Noted Date Resolved Date Hyponatremia 06/12/2020 06/19/2020 Last Assessment & Plan: Formatting of this note might be differ ent from the original. Na 131; mild normalized at 138 -monitor Traumatic rhabdomyolysis 06/04/2020 06/19/2020 Last Assessment & Plan: Formatting of this note might be differ ent from the original. S/p fall ; improved after IVF in acute CK initially 24,082>> 1,354>>> 269 >> 6 6 Cr stable remains 0.8 resolved Encounters Care Team Description Date Type Specialty Jeremiah Jiang MD Weakness (Primary Dx) 10/19/2020 Video Visit Neurology from Last 3 Months Immunizations Name Administration Dates Next Due Tdap 06/04/2020 Social History Date Tobacco Use Types Packs/Day Years Used Never Smoker Smokeless Tobacco: Never Used Comments Alcohol Use Standard Drinks/Week Never 0 (1 standard drink = 0.6 o z pure alcohol) Alcohol Habits Answer Date Recorded How often do you have a drink containing alcohol? Never 06/05/2020 How many drinks containing alcohol do you have on No t asked a typical day when you are drinking? How often do you have six or more drinks on one Not asked occasion? Sex Assigned at Date Recorded Not on file Last Filed Vital Signs Reading Time Taken Comments Vital Sign 116/80 08/10/2020 2:55 PM CDT Blood Pressure 72 08/10/2020 2:55 PM CDT Pulse 36.4 C (97.6 F) 06/20/2020 6:20 AM BREAKER TABLE WORKER Temperature 16 06/20/2020 6:20 AM BREAKER TABLE WORKER Respiratory Rate 93% 06/20/2020 6:20 AM BREAKER TABLE WORKER Oxygen Saturation - - Inhaled Oxygen Concentration 73.5 kg (162 lb) 08/10/2020 2:55 PM CDT Weight 167.6 cm (5' 6") 08/10/2020 2:55 PM CDT Height 26.15 08/10/2020 2:55 PM CDT Body Mass Index Plan of Treatment Health Maintenance Due Date Last Done Comments Hepatitis C Screen 1950 Colorectal Screening via 1999 Colonoscopy Zoster Vaccine# (1 of 2) 1999 Advance Directive 2014 Conversation Influenza Vaccine (#1) 2021 01/13/2020, 01/04/2019, 12/25/2017, Additional history exists Fall Risk Assessment # 06/20/2021 06/20/2020 Td/Tdap# 06/04/2030 06/04/2020 Pneumococcal Vaccine: 65+ Completed 12/28/2016, Years 01/19/2016 Advance Directive has Completed 06/08/2020, been filed 06/08/2020, 06/08/2020 Patient Needs Advance Completed Directive COVID-19 Vaccine Completed 08/08/2020, 07/13/2020 Results Not on filefrom Last 3 Months Insurance Type Payer Benefit Subscriber ID Effective Phone Address Plan / Dates Group MEDICAID MANAGED CARE [employer] [id number] - ([place] Present HEALTH [id number] Liban Arias Personal/F Self 1950 [address] (Home) [place], [place] [address] Advance Directives For more information, please contact: [phone] Patient Deck Mate Explanation Type Date Recorded Health Care Directive Advance Directives 06/08/2020 12:00 AM and Living Will Power of Program Officer 06/08/2020 12:00 AM Health Care 06/08/2020 6:23 PM Directive Date Inactivated Comments Code Status Date Activated 06/20/2020 4:13 PM Full Code 06/08/2020 1:47 PM 06/08/2020 1:46 PM Full Code 06/04/2020 9:03 PM Relationship Healthcare Agent Relationship Communicat ion Name Sister Power of Program Officer [phone] (Mobile ) Anne Rodriguez
--- NOTE | 2021-01-14 03:08 | ED GU-Male ---
General Chief Complaint: - Reproductive Stated Complaint: LOW BP Nursing Triage Note: Pt brought in by ems from residential with the complaint of penile bleeding. Source: patient, EMS, residential records History of Present Illness Date Seen by Provider: Jan 14, 2021 Time Seen by Provider: 02:50 Initial Comments 70 yo male that is bed bound presenting from [facility] residential due to hematuria and staff concerned that his blood pressure was dropping. EMS had blood pressures with systolic readings in 130s and he is 120 systolic on arrival to ED. He states he has some chronic intermittent cramping pain to hip. He currently is taking Augmentin for UTI that he started on Jan 09. He has urinary incontinence and wears adult diaper. He has no suprapubic pain or retention. He denies n/v/d, dizziness, abdominal pain, pain with urination. He takes Eliquis for blood thinner due to chronic paroxysmal atrial fibrillation. Timing/Duration: this evening Severity/Quality: mild Associated Symptoms: No abdominal pain, No diaphoresis, No dysuria, No fever/chills, No lower back pain, No nausea/vomiting, No syncope Allergies and Home Medications Allergies Coded Allergies: codeine (Verified Adverse Reaction, Mild, NAUSEA, 09/03/17) cyclobenzaprine (Unverified Adverse Reaction, Unknown, 06/04/20) unknown allergy, found on [facility] records tramadol (Unverified Adverse Reaction, Unknown, 06/04/20) unknown, found on [facility] Records Patient Home Medication List Home Medication List Reviewed: Yes Apixaban (Eliquis) 5 Mg Tablet, 5 MG PO BID, (Reported) Entered as Reported by: BERNABE WYMAN on 09/03/17 1014 Ascorbic Acid (Vitamin C) 500 Mg Capsule.er, 500 MG PO, (Reported) Entered as Reported by: BERNABE WYMAN on 09/03/17 1014 Cholecalciferol (Vitamin D3) (Vitamin D) 400 Unit Tablet, 400 UNIT PO, (Reported) Entered as Reported by: BERNABE WYMAN on 09/03/17 1014 Ciprofloxacin HCl (Ciprofloxacin HCl) 500 Mg Tablet, 500 MG PO BID Prescribed by: FIGUEROA CALVIN on 09/03/17 1146 Dutasteride (Avodart) 0.5 Mg Cap, 0.5 MG PO DAILY, (Reported) Entered as Reported by: BERNABE WYMAN on 09/03/17 1014 Fesoterodine Fumarate (Toviaz) 8 Mg Tab.er.24h, 8 MG PO DAILY, (Reported) Entered as Reported by: BERNABE WYMAN on 09/03/17 101 Fexofenadine HCl (Fexofenadine HCl) 180 Mg Tablet, 180 MG PO, (Reported) Entered as Reported by: BERNABE WYMAN on 09/03/17 101 Levofloxacin (Levofloxacin) 500 Mg Tablet, 500 MG PO DAILY Prescribed by: CLIFF SUAREZ on 01/14/21 0418 Lisinopril (Lisinopril) 5 Mg Tablet, 5 MG PO DAILY, (Reported) Entered as Reported by: BERNABE WYMAN on 09/03/17 101 Lovastatin (Lovastatin) 20 Mg Tablet, 20 MG PO, (Reported) Entered as Reported by: BERNABE WYMAN on 09/03/17 101 Meloxicam (Meloxicam) 7.5 Mg Tablet, 7.5 MG PO, (Reported) Entered as Reported by: BERNABE WYMAN on 09/03/17 101 Phenazopyridine HCl (Pyridium) 100 Mg Tablet, 100 MG PO TID PRN for SPASMS Prescribed by: FIGUEROA CALVIN on 09/03/17 1146 Tamsulosin HCl (Tamsulosin HCl) 0.4 Mg Cap.er.24h, 0.4 MG PO, (Reported) Entered as Reported by: BERNABE WYMAN on 09/03/17 1014 [Imipram] , 75 MG HS, (Reported) Entered as Reported by: BERNABE WYMAN on 09/03/17 1014 [Stool Softener] , (Reported) Entered as Reported by: BERNABE WYMAN on 09/03/17 101 Review of Systems Review of Systems Constitutional: no symptoms reported EENTM: no symptoms reported Respiratory: no symptoms reported Cardiovascular: no symptoms reported Gastrointestinal: no symptoms reported Genitourinary: hematuria, incontinence (chronic) Musculoskeletal: other (chronic muscle spasm pain in hip) Skin: no symptoms reported Past Hdgurlv-Khwkfv-Ijujne Hx Patient Social History Tobacco Use?: No Use of E-Cig and/or Vaping dev: No Substance use?: No Alcohol Use?: No Pt feels they are or have been: No Immunizations Up To Date Tetanus Booster (TDap): Unknown Seasonal Allergies Seasonal Allergies: Yes Past Medical History Surgeries: Yes Gallbladder Respiratory: No Cardiac: Yes Atrial Fibrillation, Heart Murmur Neurological: No Genitourinary: Yes UTI-Chronic Gastrointestinal: No Musculoskeletal: Yes (STENOSIS OF THE SPINE) Foot Drop Endocrine: Yes (THYROID ISSUES) HEENT: Yes Cataract Psychosocial: No Integumentary: Yes Psoriasis Physical Exam Vital Signs Vital Signs - First Documented 01/14/21 02:51 Temp 36.4 Pulse 86 Resp 18 B/P (MAP) 120/64 (82) Pulse Ox 96 O2 Delivery Room Air Capillary Refill : Less Than 3 Seconds Height, Weight, BMI Height: 5'5.00" Weight: 152lbs. oz. 68.228873ho; 26.00 BMI Method:Stated General Appearance: no apparent distress, other (chronically ill with multiple contractures of extremities) Cardiovascular: normal peripheral pulses, irregularly irregular Respiratory: chest non-tender, lungs clear, normal breath sounds Gastrointestinal: normal bowel sounds, non tender, soft, no pulsatile mass Rectal: deferred Male: normal genitalia Genital/Rectal: blood at urethral meatus Neurologic/Psychiatric: alert, oriented x 3 Skin: normal color, warm/dry Progress/Results/Core Measures Suspected Sepsis SIRS Temperature: Pulse: 86 Respiratory Rate: 18 Blood Pressure 120 /64 Mean: 82 Results/Orders Lab Results Laboratory Tests Test 01/14/21 03:13 Range/Units Urine Color RED H Urine Clarity CLOUDY Urine pH 6.5 5-9 Urine Specific [place] 1.015 L 1.016-1.022 Urine Protein 3+ H NEGATIVE Urine Glucose (UA) TRACE H NEGATIVE Urine Ketones 1+ H NEGATIVE Urine Nitrite POSITIVE H NEGATIVE Urine Bilirubin 3+ H NEGATIVE Urine Urobilinogen 4.0 < = 1.0 MG/DL Urine Leukocyte Esterase 2+ H NEGATIVE Urine RBC (Auto) 3+ H NEGATIVE Urine RBC TNTC H /HPF Urine WBC /HPF Urine Crystals NONE /LPF Urine Bacteria /HPF Urine Casts NONE /LPF Urine Mucus NEGATIVE /LPF Urine Culture Indicated YES My Orders Orders - CLIFF SUAREZ MD Ua Culture If Indicated (01/14/21 03:01) Straight Cath For Spec.-Adult (01/14/21 03:01) Urine Culture (01/14/21 03:13) Levofloxacin Tablet (Levaquin Tablet) (01/14/21 04:17) Vital Signs/I&O 01/14/21 02:51 Temp 36.4 Pulse 86 Resp 18 B/P (MAP) 120/64 (82) Pulse Ox 96 O2 Delivery Room Air Capillary Refill : Less Than 3 Seconds Blood Pressure Mean: 82 Progress Note #1: Progress Note hemodynamically stable without hypotension. will check UA since he has blood in urine and is currently on antibiotics as well as taking Eliquis for chronic paroxysmal atrial fibrillation. Progress Note #2: Progress Note straight cath UA does show bloody urine with continued signs of infection despite antibiotics. I do not have access to his sensitivities for most recent UA. Will change antibiotic pending culture and sensitivity from [facility]. Continu e to encourage fluids and monitor for retention. Departure Impression Primary Impression: Cystitis with hematuria Additional Impression: Chronic anticoagulation Disposition: HOME, SELF-CARE Condition: Stable Departure-Patient Inst. Decision time for Depature: 03:59 Referrals: DANNA BILL MD (PCP/Family) Primary Care Physician Patient Instructions: Blood in Urine (Hematuria), Adult ED, Urinary Tract Infection, Adult ED Add. Discharge Instructions: Stop the Augmentin you are taking for UTI and start Levaquin. Continue to drink plenty of fluids to help flush out blood and infection with urine. If you have urinary retention and develop pain and unable to urinate then seek medical care to see if you need a Bañuelos catheter with constant bladder irrigation to flush out blood and infection. Consider follow up with Urology once antibiotics are done and blood cleared from urine to see if they need to do a scope of bladder to look for sources of potential bleeding from bladder wall and prostate. All discharge instructions reviewed with patient and/or family. Voiced understanding. Scripts Levofloxacin (Levofloxacin) 500 Mg Tablet 500 MG PO DAILY for UTI for 7 Days, #7 TAB 0 Refills Prov: CLIFF SUAREZ MD 01/14/21 CLIFF SUAREZ MD Jan 14, 2021 03:08
[2021-01-14 03:24] LABS: BILIRUBIN,URINE 3+ (NEGATIVE); CLARITY,URINE CLOUDY; COLOR,URINE RED; GLUCOSE, URINE (UA) TRACE (NEGATIVE); KETONES,URINE 1+ (NEGATIVE); NITRITE,URINE POSITIVE (NEGATIVE); PH,URINE 6.5 (5-9); PROTEIN,URINE 3+ (NEGATIVE)
[2021-01-14 03:25] LABS: LEUKOCYTE ESTERASE ,URINE 2+ (NEGATIVE); RBC,URINE TNTC /HPF
[2021-01-14] MEDS ORDERED: LEVO500T80 PO ×2 (03:58→04:18)
== END 2021-01-14 04:25 | disposition home or self-care (01) ==
LOC: EDUNIT# 02:50 → ER FS 02:51
DX: N30.91 Cystitis, unspecified with hematuria (principal); I48.0 Paroxysmal atrial fibrillation; Z79.01 Long term (current) use of anticoagulants
CPT/HCPCS: 51701; 81000; 87088

== ENCOUNTER 2021-03-26 08:29 | Emergency (ER) | payer MEDICAID ==
[~2021-03-26 08:29] MED LIST changes: +LEVO500T81 PO; -LISI-729 PO; +LISI5TAB20 PO
--- OUTSIDE RECORDS SUMMARY | 2021-03-26 08:34 | XMS REPORT | Clinical Summary ---
Author Author [facility] Organization [facility] Address Unknown Phone Unavailable Care Team Providers Care Weather Reporter Name Role Phone Self, Lefty OSCAR PCP [...] the original. Per chart Patient reports no HEALTH PLAN SPECIALIST meds TSH, Free T4 wnl 06/12 -follow up with PCP as oP Atrial fibrillation 07/15/2014 Last Assessment & Plan: Formatting of this note might be differ ent from the original. Chronic HEALTH PLAN SPECIALIST eliquis, no rate control meds per p atient Rate controlled -Continue eliquis -Monitor HR with routine vitals Sepsis due to urinary tract infection 07/15/2014 Abnormal gait 03/14/2014 OM (onychomycosis) 08/13/2013 Seasonal allergic rhinitis 07/21/2013 Hypertension 05/27/2013 Last Assessment & Plan: Formatting of this note might be differ ent from the original. SBP trends improved since stopping Evelyne nopril, soft 06/19 asymptomatic HEALTH PLAN SPECIALIST lisinopril 5mg daily -continue to Hold lisinopril [...] 6 6 Cr stable remains 0.8 resolved Immunizations Name Administration Dates Next Due Tdap [...] more drinks on one Not asked occasion? Comment: Not asked Sex Assigned at Date Recorded Not on file Last Filed Vital Signs Reading Time Taken Comments Vital Sign 116/80 08/10/2020 2:55 PM CDT Blood Pressure 72 08/10/2020 2:55 PM CDT Pulse 36.4 C (97.6 F) 06/20/2020 6:20 AM DIVINE HEALER Temperature 16 06/20/2020 6:20 AM DIVINE HEALER Respiratory Rate 93% 06/20/2020 6:20 AM DIVINE HEALER Oxygen Saturation - - Inhaled Oxygen Concentration 73.5 kg (162 lb) 08/10/2020 2:55 PM CDT Weight 167.6 cm (5' 6") 08/10/2020 2:55 PM CDT Height 26.15 08/10/2020 2:55 PM CDT Body Mass Index Plan of Treatment Health Maintenance Due Date Last Done Comments Hepatitis C Screen 1950 Colorectal Screening via 1999 Colonoscopy Zoster Vaccine# (1 of 2) 1999 Influenza Vaccine (#1) 2021 01/04/2019, 12/25/2017, 12/28/2016, Additional history exists COVID-19 Vaccine (3 - 02/07/2021 08/08/2020, Booster) 07/13/2020 Fall Risk Assessment # 06/20/2021 06/20/2020 Td/Tdap# 06/04/2030 06/04/2020 Pneumococcal Vaccine: 65+ Completed 12/28/2016, Years 01/19/2016 Advance Care Plan Completed 06/08/2020, Document Filed # 06/08/2020, 06/08/2020 Results Not on filefrom Last 3 Months Insurance Type Payer Benefit Subscriber ID Effective Phone Address Plan / Dates Group MEDICAID MANAGED CARE [employer] [id number] 2020- [address]) [address] [id number] [address] Liban Arias Personal/F Self 1950 [address] (Home) [place], [place] [address] Advance Directives For more information, please contact: [phone] Patient Qa Intern Explanation Type Date Recorded Health Care Directive Advance Directives 06/08/2020 12:00 AM and Living Will Power of Test Clerk 06/08/2020 12:00 AM Health Care 06/08/2020 6:23 PM Directive Date Inactivated Comments Code Status Date Activated 06/20/2020 4:13 PM Full Code 06/08/2020 1:47 PM 06/08/2020 1:46 PM Full Code 06/04/2020 9:03 PM Relationship Healthcare Agent Relationship Communicat ion Name Sister Power of Test Clerk [phone] (Mobile ) Anne Rodriguez Care Teams Start Date End Date Weather Reporter Relationship Specialty 06/04/20 Lefty Purvis MD PCP - General Family [address] [place] [address] [place] [address]
[2021-03-26] MEDS ORDERED: NS IV 1000 ML 1,000 ML IV SCH (08:45)
--- NOTE | 2021-03-26 08:49 | ED General ---
General Chief Complaint: Fever-Adult/Adol Stated Complaint: FEVER; CHEST CONGESTION History of Present Illness Date Seen by Provider: Mar 26, 2021 Time Seen by Provider: 08:45 Initial Comments Patient presenting to emergency department for evaluation of fever and hypoxia. Reportedly at [facility] checked his vital signs this morning and his temperature was 104 degrees and his oxygen saturation was 85% and he does not usually require oxygen. They reportedly did a rapid Covid at the detention and it was negative. Patient has a very difficult time communicating but from what I can understand he may have had some cough and feels short of breath. Patient has extensive medical history including post polio syndrome and mobility issues as well as atrial fibrillation for which she takes Eliquis as his anticoagulant. Patient was taken off the oxygen saturation here to get a room air oxygen saturation level and it has remained in the 94 to 96% range on initial evaluation. Reportedly he received Tylenol shortly before coming to the emergency department and his temperature is now 37.7. He is in mild respiratory distress but nontoxic. Allergies and Home Medications Allergies Coded Allergies: codeine (Verified Adverse Reaction, Mild, NAUSEA, 09/03/17) cyclobenzaprine (Unverified Adverse Reaction, Unknown, 06/04/20) unknown allergy, found on [facility] records tramadol (Unverified Adverse Reaction, Unknown, 06/04/20) unknown, found on [facility] Records Patient Home Medication List Home Medication List Reviewed: Yes Apixaban (Eliquis) 5 Mg Tablet, 5 MG PO BID, (Reported) Entered as Reported by: BERNABE WYMAN on 09/03/17 1014 Ascorbic Acid (Vitamin C) 500 Mg Capsule.er, 500 MG PO, (Reported) Entered as Reported by: BERNABE WYMAN on 09/03/17 1014 Cholecalciferol (Vitamin D3) (Vitamin D) 400 Unit Tablet, 400 UNIT PO, (Reported) Entered as Reported by: BERNABE WYMAN on 09/03/17 1014 Ciprofloxacin HCl (Ciprofloxacin HCl) 500 Mg Tablet, 500 MG PO BID Prescribed by: FIGUEROA CALVIN on 09/03/17 1146 Dutasteride (Avodart) 0.5 Mg Cap, 0.5 MG PO DAILY, (Reported) Entered as Reported by: BERNABE WYMAN on 09/03/17 1014 Fesoterodine Fumarate (Toviaz) 8 Mg Tab.er.24h, 8 MG PO DAILY, (Reported) Entered as Reported by: BERNABE WYMAN on 09/03/17 1014 Fexofenadine HCl (Fexofenadine HCl) 180 Mg Tablet, 180 MG PO, (Reported) Entered as Reported by: BERNABE WYMAN on 09/03/17 1014 Levofloxacin (Levofloxacin) 500 Mg Tablet, 500 MG PO DAILY Prescribed by: CLIFF SUAREZ on 01/14/21 0418 Lisinopril (Lisinopril) 5 Mg Tablet, 5 MG PO DAILY, (Reported) Entered as Reported by: BERNABE WYMAN on 09/03/17 1014 Lovastatin (Lovastatin) 20 Mg Tablet, 20 MG PO, (Reported) Entered as Reported by: BERNABE WYMAN on 09/03/17 1014 Meloxicam (Meloxicam) 7.5 Mg Tablet, 7.5 MG PO, (Reported) Entered as Reported by: BERNABE WYMAN on 09/03/17 101 Phenazopyridine HCl (Pyridium) 100 Mg Tablet, 100 MG PO TID PRN for SPASMS Prescribed by: FIGUEROA CALVIN on 09/03/17 1146 Tamsulosin HCl (Tamsulosin HCl) 0.4 Mg Cap.er.24h, 0.4 MG PO, (Reported) Entered as Reported by: BERNABE WYMAN on 09/03/17 1014 [Imipram] , 75 MG HS, (Reported) Entered as Reported by: BERNABE WYMAN on 09/03/17 1014 [Stool Softener] , (Reported) Entered as Reported by: BERNABE WYMAN on 09/03/17 1014 Review of Systems Review of Systems Constitutional: fever EENTM: nose congestion Respiratory: cough, short of breath Cardiovascular: no symptoms reported Gastrointestinal: no symptoms reported Genitourinary: no symptoms reported Musculoskeletal: joint pain, muscle pain Skin: no symptoms reported Psychiatric/Neurological: No Symptoms Reported All Other Systems Reviewed Negative Unless Noted: Yes Past Yghncor-Jltbqq-Pggqrh Hx Immunizations Up To Date Tetanus Booster (TDap): Unknown Seasonal Allergies Seasonal Allergies: Yes Past Medical History Surgeries: Yes Gallbladder Respiratory: No Cardiac: Yes Atrial Fibrillation, Heart Murmur Neurological: No Genitourinary: Yes UTI-Chronic Gastrointestinal: No Musculoskeletal: Yes (STENOSIS OF THE SPINE) Foot Drop Endocrine: Yes (THYROID ISSUES) HEENT: Yes Cataract Psychosocial: No Integumentary: Yes Psoriasis Physical Exam Vital Signs Vital Signs - First Documented 03/26/21 08:30 Temp 37.7 Pulse 91 Resp 20 B/P (MAP) 106/73 (84) Pulse Ox 94 O2 Delivery Room Air Capillary Refill : Height, Weight, BMI Height: 5'5.00" Weight: 152lbs. oz. 68.049247ig; 26.00 BMI Method:Stated General Appearance: Chronically ill, Mild Distress HEENT: PERRL/EOMI Neck: Supple Respiratory: Other (Coarse breath sounds with rhonchi on the right lung) Cardiovascular: Regular Rate, Rhythm Gastrointestinal: Non Tender, Soft Extremity: Normal Capillary Refill Neurologic/Psychiatric: Alert Skin: Warm/Dry Focused Exam Lactate Level 03/26/21 08:39: Lactic Acid Level 0.92 Lactic Acid Level Laboratory Tests Test 03/26/21 08:39 Lactic Acid Level 0.92 MMOL/L (0.50-2.00) Progress/Results/Core Measures Suspected Sepsis SIRS Temperature: Pulse: Respiratory Rate: Laboratory Tests 03/26/21 08:39: White Blood Count 11.7H Blood Pressure / Mean: 03/26/21 08:39: Lactic Acid Level 0.92 Laboratory Tests 03/26/21 08:39: Creatinine 0.68, INR Comment 1.5H, Platelet Count 229, Total Bilirubin 0.3 Results/Orders Lab Results Laboratory Tests Test 03/26/21 08:39 03/26/21 08:50 03/26/21 08:57 03/26/21 09:18 Range/Units White Blood Count 11.7 H 4.3-11.0 10^3/uL Red Blood Count 4.02 L 4.30-5.52 10^6/uL Hemoglobin 12.0 L 13.3-17.7 g/dL Hematocrit 36 L 40-54 % Mean Corpuscular Volume 90 80-99 fL Mean Corpuscular Hemoglobin 30 25-34 pg Mean Corpuscular Hemoglobin Concent 33 32-36 g/dL Red Cell Distribution Width 15.1 H 10.0-14.5 % Platelet Count 229 130-400 10^3/uL Mean Platelet Volume 9.3 9.0-12.2 fL Neutrophils (%) (Auto) 90 H 42-75 % Lymphocytes (%) (Auto) 4 L 12-44 % Monocytes (%) (Auto) 6 0-12 % Eosinophils (%) (Auto) 0 0-10 % Basophils (%) (Auto) 0 0-10 % Neutrophils # (Auto) 10.5 H 1.8-7.8 X 10^3 Lymphocytes # (Auto) 0.5 L 1.0-4.0 X 10^3 Monocytes # (Auto) 0.7 0.0-1.0 X 10^3 Eosinophils # (Auto) 0.0 0.0-0.3 10^3/uL Basophils # (Auto) 0.0 0.0-0.1 10^3/uL Neutrophils % (Manual) 84 % Lymphocytes % (Manual) 2 % Monocytes % (Manual) 4 % Eosinophils % (Manual) 0 % Basophils % (Manual) 1 % Band Neutrophils 7 % Atypical Lymphocytes 2 % Toxic Granulation Platelet Estimate NORMAL Blood Morphology Comment NORMAL Prothrombin Time 18.3 H 12.2-14.7 SEC INR Comment 1.5 H 0.8-1.4 Activated Partial Thromboplast Time 41 H 24-35 SEC Sodium Level 135 135-145 MMOL/L Potassium Level 3.6 3.6-5.0 MMOL/L Chloride Level 100 98-107 MMOL/L Carbon Dioxide Level 24 21-32 MMOL/L Anion Gap 11 5-14 MMOL/L Blood Urea Nitrogen 21 H 7-18 MG/DL Creatinine 0.68 0.60-1.30 MG/DL Estimat Glomerular Filtration Rate 115 BUN/Creatinine Ratio 31 Glucose Level 110 H 70-105 MG/DL Lactic Acid Level 0.92 0.50-2.00 MMOL/L Calcium Level 8.0 L 8.5-10.1 MG/DL Corrected Calcium 8.7 8.5-10.1 MG/DL Total Bilirubin 0.3 0.1-1.0 MG/DL Aspartate Amino Transf (AST/SGOT) 15 5-34 U/L Alanine Aminotransferase (ALT/SGPT) 7 0-55 U/L Alkaline Phosphatase 63 40-136 U/L Troponin I < 0.30 <0.30 NG/ML Pro-B-Type Natriuretic Peptide 1734.0 H <75.0 PG/ML Total Protein 6.6 6.4-8.2 GM/DL Albumin 3.1 L 3.2-4.5 GM/DL Lipase 17 8-78 U/L Blood Gas Puncture Site LT RADIAL Blood Gas Patient Temperature 37.7 Arterial Blood pH 7.48 H 7.37-7.43 Arterial Blood Partial Pressure CO2 36 35-45 MMHG Arterial Blood Partial Pressure O2 74 L 79-93 MMHG Arterial Blood HCO3 27 23-27 MMOL/L Arterial Blood Total CO2 27.9 21.0-31.0 MMOL/L Arterial Blood Oxygen Saturation 96 94-100 % Arterial Blood Base Excess 3.3 H -2.5-2.5 MMOL/L Graham Test NO Blood Gas Ventilator Setting NO Blood Gas Inspired Oxygen ROOM AIR Influenza Type A Antigen NEGATIVE NEGATIVE Influenza Type B Antigen NEGATIVE NEGATIVE Urine Color YELLOW Urine Clarity TURBID Urine pH 6.0 5-9 Urine Specific [place] 1.025 H 1.016-1.022 Urine Protein 1+ H NEGATIVE Urine Glucose (UA) NEGATIVE NEGATIVE Urine Ketones 1+ H NEGATIVE Urine Nitrite POSITIVE H NEGATIVE Urine Bilirubin NEGATIVE NEGATIVE Urine Urobilinogen 1.0 < = 1.0 MG/DL Urine Leukocyte Esterase 2+ H NEGATIVE Urine RBC (Auto) 3+ H NEGATIVE Urine RBC >100 H /HPF Urine WBC >100 H /HPF Urine Squamous Epithelial Cells 10-25 H /HPF Urine Crystals NONE /LPF Urine Bacteria LARGE H /HPF Urine Casts NONE /LPF Urine Mucus LARGE H /LPF Urine Yeast FEW H /HPF Urine Culture Indicated YES My Orders Orders - MEKA SPANGLER DO Iv/Invasive Line Insertion .IV start (03/26/21 08:37) Blood Culture (03/26/21 08:37) Arterial Blood Gas (03/26/21 08:37) Cbc With Automated Diff (03/26/21 08:37) Comprehensive Metabolic Panel (03/26/21 08:37) Lactic Acid Analyzer (03/26/21 08:37) Chest 1 View Ap/Pa Only (03/26/21 08:37) Ua Culture If Indicated (03/26/21 08:37) Troponin I Razia (03/26/21 08:37) Probnp Fs (03/26/21 08:37) Protime With Inr (03/26/21 08:37) Partial Thromboplastin Time (03/26/21 08:37) Lipase (03/26/21 08:37) Influenza A & B Antigens (03/26/21 08:37) Ns Iv 1000 Ml (Sodium Chloride 0.9%) (03/26/21 08:45) Covid 19 Inhouse Test (03/26/21 08:41) Manual Differential (03/26/21 08:39) Blood Culture (03/26/21 09:08) Urine Culture (03/26/21 09:18) Ceftriaxone (Rocephin) (03/26/21 10:00) Lactated Ringers (Lr 1000 Ml Iv Solution (03/26/21 10:00) Medications Given in ED Current Medications Medications Dose Ordered Sig/Olman Route Start Time Stop Time Status Last Admin Dose Admin Ceftriaxone Sodium 2000 mg/ Sodium Chloride 50 ml @ 100 mls/hr ONCE ONCE IV 03/26/21 10:00 03/26/21 10:29 DC 03/26/21 10:08 100 MLS/HR Vital Signs/I&O 03/26/21 08:30 Temp 37.7 Pulse 91 Resp 20 B/P (MAP) 106/73 (84) Pulse Ox 94 O2 Delivery Room Air Capillary Refill : Progress Note : Progress Note Patient has a fever with respiratory symptoms but is not hypoxic here in the emergency department. I will check labs chest x-ray treat with IV fluids and observe. Patient had work-up revealing leukocytosis in addition to urinary tract infection. There is no signs of pneumonia on his chest x-ray and his Covid is still pending. I had extensive discussion with patient and family regarding his findings and they say that he has had complicated urinary tract infection since May of this year that have been very difficult to treat. Patient's vital signs are normal here including a blood pressure of 119/55 and oxygen saturation of 96% and a heart rate of 88 after treatment with IV fluids and antibiotics. I also discussed inpatient versus outpatient treatment for his infection and they said they would like for me to talk to Dr. Purvis and they would prefer for the patient to go back to [facility] if possible but if Dr. Menendez felt that he need to be admitted then they would be okay with that. I spoke to Dr. Echavarria about his softer blood pressures and his work-up here in the emergency department and he states that he is okay with either inpatient or outpatient treatment and he reviewed the culture results from his most recent urinary tract infection and said that he is resistant to fluoroquinolones but sensitive to cephalosporins. I again spoke to family regarding my discussion with Dr. Purvis and they are agreeable with outpatient treatment. Patient will be discharged on Keflex and I have recommended to keep a close eye on his vital signs and treat his fevers with Tylenol and ibuprofen and that they can send him back to the emergency department anytime for reevaluation. Departure Impression Primary Impression: Cystitis with hematuria Additional Impression: Leukocytosis Disposition: HOME, SELF-CARE Condition: Stable Departure-Patient Inst. Referrals: DANNA PURVIS MD (PCP/Family) Primary Care Physician Patient Instructions: Urinary Tract Infection, Adult ED Add. Discharge Instructions: Tylenol and Ibuprofen for fever. Come back to the ED with any concerns. Thank you! All discharge instructions reviewed with patient and/or family. Voiced understanding. Scripts Cephalexin (Cephalexin) 500 Mg Tablet 500 MG PO QID for 10 Days, #40 TAB Prov: MEKA SPANGLER DO 03/26/21 MEKA SPANGLER DO Mar 26, 2021 08:49
--- NOTE | 2021-03-26 08:54 | Diagnostic Imaging Report ---
INDICATION: Fever with chest congestion. TIME OF EXAM: 8:44 AM Comparison is made with prior chest from 06/04/2020. Right hemidiaphragm is chronically elevated. The heart size is stable. No infiltrates are detected. There is no evidence of congestive failure. No effusion or pneumothorax is identified. IMPRESSION: No acute cardiopulmonary process is detected. Dictated by: Dictated on workstation # [id number]
[2021-03-26 08:58] LABS: BASOPHILS % (AUTO) 0 % (0-10); EOSINOPHILS % (AUTO) 0 % (0-10); HEMATOCRIT 36 % (40-54); LYMPHOCYTES # (AUTO) 0.5 X 10^3 (1.0-4.0); LYMPHOCYTES % (AUTO) 4 % (12-44); MEAN CORPUSCULAR HEMOGLOBIN 30 pg (25-34); MEAN CORPUSCULAR HGB CONC 33 g/dL (32-36); MEAN CORPUSCULAR VOLUME 90 fL (80-99); MEAN PLATELET VOLUME 9.3 fL (9.0-12.2); MONOCYTES # (AUTO) 0.7 X 10^3 (0.0-1.0); MONOCYTES % (AUTO) 6 % (0-12); NEUTROPHILS # (AUTO) 10.5 X 10^3 (1.8-7.8); NEUTROPHILS % (AUTO) 90 % (42-75); PLATELET COUNT 229 10^3/uL (130-400); WHITE BLOOD COUNT 11.7 10^3/uL (4.3-11.0)
[2021-03-26 09:03] LABS: INR 1.5 (0.8-1.4); PROTHROMBIN TIME PATIENT 18.3 SEC (12.2-14.7)
[2021-03-26 09:13] LABS: ABG PCO2 36 MMHG (35-45); ABG PH 7.48 (7.37-7.43); ABG PO2 74 MMHG (79-93)
[2021-03-26 09:14] LABS: ABG BASE EXCESS 3.3 MMOL/L (-2.5-2.5); ABG OXYGEN SATURATION 96 % (94-100); ABG TCO2 27.9 MMOL/L (21.0-31.0); ALLENS TEST NO; INSPIRED O2 ROOM AIR; PATIENT TEMP 37.7; VENTILATOR NO
[2021-03-26 09:25] LABS: BAND NEUTROPHILS 7 %; BASOPHILS % (MANUAL) 1 %; EOSINOPHILS % (MANUAL) 0 %; LYMPHOCYTES % (MANUAL) 2 %; MONOCYTES % (MANUAL) 4 %; NEUTROPHILS % (MANUAL) 84 %
[2021-03-26 09:26] LABS: BILIRUBIN,URINE NEGATIVE (NEGATIVE); CLARITY,URINE TURBID; COLOR,URINE YELLOW; GLUCOSE, URINE (UA) NEGATIVE (NEGATIVE); KETONES,URINE 1+ (NEGATIVE); LEUKOCYTE ESTERASE ,URINE 2+ (NEGATIVE); NITRITE,URINE POSITIVE (NEGATIVE); PROTEIN,URINE 1+ (NEGATIVE)
[2021-03-26 09:26] LABS: ATYPICAL LYMPHOCYTES 2 %; PLATELET ESTIMATE NORMAL; RBC MORPH NORMAL
[2021-03-26 09:27] LABS: CARBON DIOXIDE 24 MMOL/L (21-32); CHLORIDE 100 MMOL/L (98-107); POTASSIUM 3.6 MMOL/L (3.6-5.0); SODIUM 135 MMOL/L (135-145)
[2021-03-26 09:28] LABS: ALANINE AMINOTRANSFERASE 7 U/L (0-55); ALBUMIN 3.1 GM/DL (3.2-4.5); ALKALINE PHOSPHATASE 63 U/L (40-136); BILIRUBIN,TOTAL 0.3 MG/DL (0.1-1.0); BUN/CREATININE RATIO 31; CREATININE SERUM 0.68 MG/DL (0.60-1.30); GFR ESTIMATED 115; GLUCOSE 110 MG/DL (70-105); LIPASE 17 U/L (8-78); TOTAL PROTEIN 6.6 GM/DL (6.4-8.2)
[2021-03-26 09:36] LABS: BACTERIA,URINE LARGE /HPF; RBC,URINE >100 /HPF; WBC,URINE >100 /HPF; YEAST,URINE FEW /HPF
[2021-03-26] MEDS ORDERED: LACTATED RINGERS 1,000 ML IV SCH (10:00)
[2021-03-26] MEDS ORDERED: cefTRIAXone 2,000 MG in NS (IVPB) 50 ML IV ONE (10:00)
[2021-03-26 11:48] VITALS: BP 119/55
[2021-03-26] MEDS ORDERED: CEPH500T PO (11:52)
== END 2021-03-26 13:07 | disposition home or self-care (01) ==
LOC: EDUNIT# 08:29 → ER FS 08:30
DX: N30.91 Cystitis, unspecified with hematuria (principal); D72.829 Elevated white blood cell count, unspecified; I48.91 Unspecified atrial fibrillation; Z20.822 Contact with and (suspected) exposure to COVID-19; Z79.01 Long term (current) use of anticoagulants
CPT/HCPCS: 36415; 71045; 80053; 81000; 82805; 83605; 83690; 83880; 84484; 85007; 85027; 85610; 85730; 87040; 87077; 87088; 87186; 87636; 87804

== ENCOUNTER → 2021-05-07 | Outpatient (CLI) | payer MEDICAID ==
[~2021-05-07] MED LIST changes: +CEPH500T PO
[2021-05-07 18:09] LABS: BILIRUBIN,URINE NEGATIVE (NEGATIVE); CLARITY,URINE TURBID; COLOR,URINE YELLOW; GLUCOSE, URINE (UA) NEGATIVE (NEGATIVE); KETONES,URINE NEGATIVE (NEGATIVE); LEUKOCYTE ESTERASE ,URINE 2+ (NEGATIVE); NITRITE,URINE NEGATIVE (NEGATIVE); PH,URINE 5.5 (5-9); PROTEIN,URINE 2+ (NEGATIVE)
[2021-05-07 18:34] LABS: RBC,URINE 25-50 /HPF
[2021-05-07 18:35] LABS: WBC,URINE TNTC /HPF
[2021-05-07 18:37] LABS: BACTERIA,URINE LARGE /HPF; SQUAMOUS EPITHELIAL CELL,UR RARE /HPF
[2021-05-07 18:38] LABS: URINE OTHER CULTURE ORDER BY DR. /HPF
== END ==
PROVIDERS: ATTEND Family Medicine
DX: R31.9 Hematuria, unspecified (principal)
CPT/HCPCS: 81000; 87088

== ENCOUNTER 2021-07-14 08:48 | Emergency (ER) | payer MEDICAID ==
[~2021-07-14 08:48] MED LIST changes: +FEXO-249 PO; -FEXO-46 PO
--- NOTE | 2021-07-14 08:56 | ED Fever ---
History of Present Illness General Stated Complaint: FEVER History of Present Illness Date Seen by Provider: Jul 14, 2021 Time Seen by Provider: 08:56 Initial Comments 71-year-old male presents with fever. Patient sent in from the [facility]. They report that he had a fever around 102-103 during the night. He has a history of urinary tract infections with an indwelling catheter. Patient has some mildly low oxygen but no reports of cough. He was negative for both influenza and Covid when tested at the halfway today. Patient himself reports that he feels fine does not complain of anything. skilled nursing reports that he is not quite as talkative as normal. Patient had some mild diminished lung sounds and was given a DuoNeb little bit oxygen in route. No other systemic complaints. Allergies and Home Medications Allergies Coded Allergies: codeine (Verified Adverse Reaction, Mild, NAUSEA, 09/03/17) cyclobenzaprine (Unverified Adverse Reaction, Unknown, 06/04/20) unknown allergy, found on [facility] records tramadol (Unverified Adverse Reaction, Unknown, 06/04/20) unknown, found on [facility] Records Patient Home Medication List Home Medication List Reviewed: Yes Apixaban (Eliquis) 5 Mg Tablet, 5 MG PO BID, (Reported) Entered as Reported by: BERNABE WYMAN on 09/03/17 1014 Ascorbic Acid (Vitamin C) 500 Mg Capsule.er, 500 MG PO, (Reported) Entered as Reported by: BERNABE WYMAN on 09/03/17 1014 Cephalexin (Cephalexin) 500 Mg Tablet, 500 MG PO QID Prescribed by: MEKA SPANGLER on 03/26/21 1152 Cholecalciferol (Vitamin D3) (Vitamin D) 400 Unit Tablet, 400 UNIT PO, (Reported) Entered as Reported by: BERNABE WYMAN on 09/03/17 1014 Ciprofloxacin HCl (Ciprofloxacin HCl) 500 Mg Tablet, 500 MG PO BID Prescribed by: FIGUEROA CALVIN on 09/03/17 1146 Dutasteride (Avodart) 0.5 Mg Cap, 0.5 MG PO DAILY, (Reported) Entered as Reported by: BERNABE WYMAN on 09/03/17 1014 Fesoterodine Fumarate (Toviaz) 8 Mg Tab.er.24h, 8 MG PO DAILY, (Reported) Entered as Reported by: BERNABE WYMAN on 09/03/17 1014 Fexofenadine HCl (Fexofenadine HCl) 180 Mg Tablet, 180 MG PO, (Reported) Entered as Reported by: BERNABE WYMAN on 09/03/17 1014 Levofloxacin (Levofloxacin) 500 Mg Tablet, 500 MG PO DAILY Prescribed by: CLIFF SUAREZ on 01/14/21 0418 Lisinopril (Lisinopril) 5 Mg Tablet, 5 MG PO DAILY, (Reported) Entered as Reported by: BERNABE WYMAN on 09/03/17 1014 Lovastatin (Lovastatin) 20 Mg Tablet, 20 MG PO, (Reported) Entered as Reported by: BERNABE WYMAN on 09/03/17 1014 Meloxicam (Meloxicam) 7.5 Mg Tablet, 7.5 MG PO, (Reported) Entered as Reported by: BERNABE WYMAN on 09/03/17 1014 Phenazopyridine HCl (Pyridium) 100 Mg Tablet, 100 MG PO TID PRN for SPASMS Prescribed by: FIGUEROA CALVIN on 09/03/17 1146 Tamsulosin HCl (Tamsulosin HCl) 0.4 Mg Cap.er.24h, 0.4 MG PO, (Reported) Entered as Reported by: BERNABE WYMAN on 09/03/17 1014 [Imipram] , 75 MG HS, (Reported) Entered as Reported by: BERNABE WYMAN on 09/03/17 1014 [Stool Softener] , (Reported) Entered as Reported by: BERNABE WYMAN on 09/03/17 1014 Review of Systems Review of Systems Constitutional: fever EENTM: no symptoms reported Respiratory: see HPI Cardiovascular: no symptoms reported Gastrointestinal: no symptoms reported Genitourinary: see HPI Musculoskeletal: no symptoms reported Skin: no symptoms reported Psychiatric/Neurological: No Symptoms Reported Past Wdgbjsu-Mnjigw-Vazwjt Hx Immunizations Up To Date Tetanus Booster (TDap): Unknown Seasonal Allergies Seasonal Allergies: Yes Past Medical History Surgeries: Yes Gallbladder Respiratory: No Cardiac: Yes Atrial Fibrillation, Heart Murmur Neurological: No Genitourinary: Yes UTI-Chronic Gastrointestinal: No Musculoskeletal: Yes (STENOSIS OF THE SPINE) Foot Drop Endocrine: Yes (THYROID ISSUES) HEENT: Yes Cataract Psychosocial: No Integumentary: Yes Psoriasis Physical Exam Vital Signs - First Documented 07/14/21 08:53 Temp 36.4 Pulse 83 Resp 16 B/P (MAP) 94/42 (59) Pulse Ox 95 O2 Delivery Room Air Capillary Refill : Height: 5'5.00" Weight: 152lbs. oz. 68.267650fv; 26.00 BMI Method:Stated General Appearance: no apparent distress, other (Chronically ill and contractured at baseline) HEENT: PERRL/EOMI Respiratory: decreased breath sounds (Mild) Cardiovascular: normal peripheral pulses, regular rate, rhythm Gastrointestinal: non tender, soft Neurologic/Psychiatric: alert, other (At baseline) Skin: normal color, warm/dry Progress/Results/Core Measures Suspected Sepsis SIRS Temperature: Pulse: Respiratory Rate: Laboratory Tests 07/14/21 09:00: White Blood Count 27.0H Blood Pressure / Mean: Laboratory Tests 07/14/21 09:00: Creatinine 0.75, Platelet Count 205, Total Bilirubin 0.6 Results/Orders Lab Results Laboratory Tests Test 07/14/21 09:00 Range/Units White Blood Count 27.0 H 4.3-11.0 10^3/uL Red Blood Count 4.41 4.30-5.52 10^6/uL Hemoglobin 13.3 13.3-17.7 g/dL Hematocrit 40 40-54 % Mean Corpuscular Volume 90 80-99 fL Mean Corpuscular Hemoglobin 30 25-34 pg Mean Corpuscular Hemoglobin Concent 34 32-36 g/dL Red Cell Distribution Width 15.9 H 10.0-14.5 % Platelet Count 205 130-400 10^3/uL Mean Platelet Volume 9.6 9.0-12.2 fL Immature Granulocyte % (Auto) 1 % Neutrophils (%) (Auto) 91 H 42-75 % Lymphocytes (%) (Auto) 3 L 12-44 % Monocytes (%) (Auto) 5 0-12 % Eosinophils (%) (Auto) 0 0-10 % Basophils (%) (Auto) 0 0-10 % Neutrophils # (Auto) 24.5 H 1.8-7.8 10^3/uL Lymphocytes # (Auto) 0.8 L 1.0-4.0 10^3/uL Monocytes # (Auto) 1.3 H 0.0-1.0 10^3/uL Eosinophils # (Auto) 0.0 0.0-0.3 10^3/uL Basophils # (Auto) 0.0 0.0-0.1 10^3/uL Immature Granulocyte # (Auto) 0.2 H 0.0-0.1 10^3/uL Urine Color YELLOW Urine Clarity CLOUDY Urine pH 6.0 5-9 Urine Specific [place] 1.025 H 1.016-1.022 Urine Protein TRACE H NEGATIVE Urine Glucose (UA) NEGATIVE NEGATIVE Urine Ketones NEGATIVE NEGATIVE Urine Nitrite POSITIVE H NEGATIVE Urine Bilirubin NEGATIVE NEGATIVE Urine Urobilinogen 0.2 < = 1.0 MG/DL Urine Leukocyte Esterase 2+ H NEGATIVE Urine RBC (Auto) 2+ H NEGATIVE Urine RBC NONE /HPF Urine WBC TNTC H /HPF Urine Crystals NONE /LPF Urine Bacteria LARGE H /HPF Urine Casts NONE /LPF Urine Mucus NEGATIVE /LPF Urine Culture Indicated YES Sodium Level 138 135-145 MMOL/L Potassium Level 4.0 3.6-5.0 MMOL/L Chloride Level 98 98-107 MMOL/L Carbon Dioxide Level 24 21-32 MMOL/L Anion Gap 16 H 5-14 MMOL/L Blood Urea Nitrogen 33 H 7-18 MG/DL Creatinine 0.75 0.60-1.30 MG/DL Estimat Glomerular Filtration Rate 96 BUN/Creatinine Ratio 44 Glucose Level 129 H 70-105 MG/DL Calcium Level 9.2 8.5-10.1 MG/DL Corrected Calcium 9.6 8.5-10.1 MG/DL Total Bilirubin 0.6 0.1-1.0 MG/DL Aspartate Amino Transf (AST/SGOT) 14 5-34 U/L Alanine Aminotransferase (ALT/SGPT) 7 0-55 U/L Alkaline Phosphatase 68 40-136 U/L C-Reactive Protein 13.13 H <0.50 MG/DL Total Protein 7.4 6.4-8.2 GM/DL Albumin 3.5 3.2-4.5 GM/DL My Orders Orders - CHO,FRANSICO L DO Cbc With Automated Diff (07/14/21 08:56) Comprehensive Metabolic Panel (07/14/21 08:56) Ua Culture If Indicated (07/14/21 08:56) Crp Fs (07/14/21 08:56) Chest 1 View Ap/Pa Only (07/14/21 08:56) Ed Iv/Invasive Line Start (07/14/21 08:56) Ns Iv 500 Ml (Sodium Chloride 0.9%) (07/14/21 09:00) Manual Differential (07/14/21 09:00) Urine Culture (07/14/21 09:00) Ceftriaxone (Rocephin) (07/14/21 09:15) Medications Given in ED Current Medications Medications Dose Ordered Sig/Olman Route Start Time Stop Time Status Last Admin Dose Admin Ceftriaxone Sodium 2000 mg/ Sodium Chloride 50 ml @ 240 mls/hr ONCE ONCE IV 07/14/21 09:15 07/14/21 09:27 DC 07/14/21 09:25 240 MLS/HR Sodium Chloride 500 ml @ 0 mls/hr Q0M ONCE IV 07/14/21 09:00 07/14/21 09:01 DC 07/14/21 09:03 500 MLS/HR Vital Signs/I&O 07/14/21 08:53 Temp 36.4 Pulse 83 Resp 16 B/P (MAP) 94/42 (59) Pulse Ox 95 O2 Delivery Room Air Capillary Refill : Progress Note : Progress Note Patient with elevated white count likely due to his indwelling catheter with a UTI. Patient mentation and exam is at his baseline. Patient was given 2 g Rocephin IV in the ER since his previous urine culture was susceptible to Rocephin. They are able to give IV Rocephin at halfway so he will be given Rocephin 1 g IV for 5 additional days. Recommended repeat UA on 07/19 with res ults to Dr. Purvis. Patient stable and discharged back to nursing care facility Departure Impression Primary Impression: Cystitis with hematuria Disposition: 01 HOME, SELF-CARE Condition: Stable Departure-Patient Inst. Referrals: DANNA PURVIS MD (PCP/Family) Primary Care Physician Patient Instructions: Urinary Tract Infection, Adult (DC) Add. Discharge Instructions: Rocephin, 1 g IV for 5 days starting a.m. 07/15/2021. Repeat urinalysis on 07/19/[address] Purvis Encourage fluids. FRANSICO CHO DO Jul 14, 2021 08:56
[2021-07-14] MEDS ORDERED: NS IV 500 ML 500 ML IV ONE (09:00)
[2021-07-14 09:02] LABS: BASOPHILS % (AUTO) 0 % (0-10); BILIRUBIN,URINE NEGATIVE (NEGATIVE); COLOR,URINE YELLOW; EOSINOPHILS % (AUTO) 0 % (0-10); GLUCOSE, URINE (UA) NEGATIVE (NEGATIVE); HEMATOCRIT 40 % (40-54); HEMOGLOBIN 13.3 g/dL (13.3-17.7); KETONES,URINE NEGATIVE (NEGATIVE); LEUKOCYTE ESTERASE ,URINE 2+ (NEGATIVE); LYMPHOCYTES # (AUTO) 0.8 10^3/uL (1.0-4.0); LYMPHOCYTES % (AUTO) 3 % (12-44); MEAN CORPUSCULAR HEMOGLOBIN 30 pg (25-34); MEAN CORPUSCULAR HGB CONC 34 g/dL (32-36); MEAN CORPUSCULAR VOLUME 90 fL (80-99); MEAN PLATELET VOLUME 9.6 fL (9.0-12.2); MONOCYTES # (AUTO) 1.3 10^3/uL (0.0-1.0); MONOCYTES % (AUTO) 5 % (0-12); NEUTROPHILS # (AUTO) 24.5 10^3/uL (1.8-7.8); NEUTROPHILS % (AUTO) 91 % (42-75); NITRITE,URINE POSITIVE (NEGATIVE); PLATELET COUNT 205 10^3/uL (130-400); PROTEIN,URINE TRACE (NEGATIVE)
[2021-07-14 09:07] LABS: BACTERIA,URINE LARGE /HPF; CLARITY,URINE CLOUDY; WBC,URINE TNTC /HPF
[2021-07-14] MEDS ORDERED: cefTRIAXone 2,000 MG in NS (IVPB) 50 ML IV ONE (09:15)
[2021-07-14 09:22] LABS: ALBUMIN 3.5 GM/DL (3.2-4.5); BILIRUBIN,TOTAL 0.6 MG/DL (0.1-1.0); CALCIUM 9.2 MG/DL (8.5-10.1); CREATININE SERUM 0.75 MG/DL (0.60-1.30); TOTAL PROTEIN 7.4 GM/DL (6.4-8.2)
--- NOTE | 2021-07-14 09:32 | Diagnostic Imaging Report ---
EXAMINATION: Chest 1 view HISTORY: Fever. COMPARISON: 03/26/2021. FINDINGS: No focal consolidation is seen. No large pleural effusion or pneumothorax is seen. The cardiomediastinal silhouette is normal in size and contour. There is calcified aortic atherosclerotic plaque. No acute osseous abnormality is seen. IMPRESSION: 1. No acute pleuroparenchymal process. Dictated by: Dictated on workstation # [id number]
[2021-07-14 09:34] LABS: LYMPHOCYTES % (MANUAL) 2 %; MONOCYTES % (MANUAL) 2 %; NEUTROPHILS % (MANUAL) 96 %; PLATELET ESTIMATE LRG PLTS; TOXIC GRANULATION/VACUOLAZATIO 4+
[2021-07-14 09:38] VITALS: BP 95/45
== END 2021-07-14 09:46 | disposition home or self-care (01) ==
LOC: EDUNIT# 08:48 → ER FS 08:50
DX: N30.91 Cystitis, unspecified with hematuria (principal); Z96.0 Presence of urogenital implants
CPT/HCPCS: 36415; 71045; 80053; 81000; 85007; 85027; 86141; 87077; 87088

== ENCOUNTER 2021-08-12 13:33 | Inpatient (IN) | payer MEDICAID ==
[~2021-08-12] VITALS: Ht 167.7 cm; Wt 68.1 kg
--- NOTE | 2021-08-12 13:38 | ED Fever ---
History of Present Illness General Stated Complaint: FEVER History of Present Illness Date Seen by Provider: Aug 12, 2021 Time Seen by Provider: 13:35 Initial Comments 71-year-old male with PMH of frequent UTIs/A. fib/depression and anxiety/BPH/chronic indwelling Bañuelos, was sent here from medical [place] with complaints of altered mental status. Patient is AO x2, appears lethargic, and is not giving much of a history. History taken from medical [place] staff. Patient denies pain at this time. No nausea or vomiting, abdominal pain, chest pain, palpitations. Allergies and Home Medications Allergies Coded Allergies: codeine (Verified Adverse Reaction, Mild, NAUSEA, 09/03/17) cyclobenzaprine (Unverified Adverse Reaction, Unknown, 06/04/20) unknown allergy, found on [facility] records tramadol (Unverified Adverse Reaction, Unknown, 06/04/20) unknown, found on [facility] Records Patient Home Medication List Home Medication List Reviewed: Yes Apixaban (Eliquis) 5 Mg Tablet, 5 MG PO BID, (Reported) Entered as Reported by: BERNABE WYMAN on 09/03/17 1014 Ascorbic Acid (Vitamin C) 500 Mg Capsule.er, 500 MG PO, (Reported) Entered as Reported by: BERNABE WYMAN on 09/03/17 1014 Cephalexin (Cephalexin) 500 Mg Tablet, 500 MG PO QID Prescribed by: MEKA SPANGLER on 03/26/21 1152 Cholecalciferol (Vitamin D3) (Vitamin D) 400 Unit Tablet, 400 UNIT PO, (Reported) Entered as Reported by: BERNABE WYMAN on 09/03/17 1014 Ciprofloxacin HCl (Ciprofloxacin HCl) 500 Mg Tablet, 500 MG PO BID Prescribed by: FIGUEROA CALVIN on 09/03/17 1146 Dutasteride (Avodart) 0.5 Mg Cap, 0.5 MG PO DAILY, (Reported) Entered as Reported by: BERNABE WYMAN on 09/03/17 1014 Fesoterodine Fumarate (Toviaz) 8 Mg Tab.er.24h, 8 MG PO DAILY, (Reported) Entered as Reported by: BERNABE WYMAN on 09/03/17 1014 Fexofenadine HCl (Fexofenadine HCl) 180 Mg Tablet, 180 MG PO, (Reported) Entered as Reported by: BERNABE WYMAN on 09/03/17 1014 Levofloxacin (Levofloxacin) 500 Mg Tablet, 500 MG PO DAILY Prescribed by: CLIFF SUAREZ on 01/14/21 0418 Lisinopril (Lisinopril) 5 Mg Tablet, 5 MG PO DAILY, (Reported) Entered as Reported by: BERNABE WYMAN on 09/03/17 1014 Lovastatin (Lovastatin) 20 Mg Tablet, 20 MG PO, (Reported) Entered as Reported by: BERNABE WYMAN on 09/03/17 1014 Meloxicam (Meloxicam) 7.5 Mg Tablet, 7.5 MG PO, (Reported) Entered as Reported by: BERNABE WYMAN on 09/03/17 1014 Phenazopyridine HCl (Pyridium) 100 Mg Tablet, 100 MG PO TID PRN for SPASMS Prescribed by: FIGUEROA CALVIN on 09/03/17 1146 Tamsulosin HCl (Tamsulosin HCl) 0.4 Mg Cap.er.24h, 0.4 MG PO, (Reported) Entered as Reported by: BERNABE WYMAN on 09/03/17 1014 [Imipram] , 75 MG HS, (Reported) Entered as Reported by: BERNABE WYMAN on 09/03/17 1014 [Stool Softener] , (Reported) Entered as Reported by: BERNABE WYMAN on 09/03/17 1014 Review of Systems Review of Systems Constitutional: chills, fever EENTM: no symptoms reported Respiratory: no symptoms reported Cardiovascular: no symptoms reported Gastrointestinal: no symptoms reported Genitourinary: frequency Musculoskeletal: no symptoms reported Skin: no symptoms reported Psychiatric/Neurological: No Symptoms Reported Hematologic/Lymphatic: No Symptoms Reported Immunological/Allergic: no symptoms reported Past Awpnshg-Ekrgiz-Rwavgf Hx Immunizations Up To Date Tetanus Booster (TDap): Unknown Seasonal Allergies Seasonal Allergies: Yes Past Medical History Surgeries: Yes Gallbladder Respiratory: No Cardiac: Yes Atrial Fibrillation, Heart Murmur Neurological: No Genitourinary: Yes UTI-Chronic Gastrointestinal: No Musculoskeletal: Yes (STENOSIS OF THE SPINE) Foot Drop Endocrine: Yes (THYROID ISSUES) HEENT: Yes Cataract Psychosocial: No Integumentary: Yes Psoriasis Physical Exam Vital Signs - First Documented 08/12/21 13:43 Temp 38.3 Pulse 94 Resp 24 B/P (MAP) 122/43 (69) Pulse Ox 95 O2 Delivery Room Air Capillary Refill : Height: 5'5.00" Weight: 152lbs. oz. 68.011503up; 26.00 BMI Method:Stated General Appearance: no apparent distress, other (dehydrated with tentingof skin and dry mucous membranes) HEENT: PERRL/EOMI Neck: full range of motion, normal inspection Respiratory: lungs clear, normal breath sounds, no respiratory distress Cardiovascular: normal peripheral pulses, regular rate, rhythm Gastrointestinal: normal bowel sounds, non tender, soft Extremities: normal range of motion Neurologic/Psychiatric: no motor/sensory deficits (contracted upper extremities), alert, other (AO x2) Skin: warm/dry Focused Exam Lactate Level 08/12/21 13:40: Lactic Acid Level 2.16*H 08/12/21 15:46: Lactic Acid Level Laboratory Tests Test 08/12/21 13:40 08/12/21 15:46 Lactic Acid Level 2.16 MMOL/L (0.50-2.00) *H Progress/Results/Core Measures Suspected Sepsis SIRS Temperature: Pulse: Respiratory Rate: Laboratory Tests 08/12/21 13:40: White Blood Count 16.7H Blood Pressure / Mean: 08/12/21 13:40: Lactic Acid Level 2.16*H 08/12/21 15:46: Laboratory Tests 08/12/21 13:40: Creatinine 0.71, Platelet Count 110L, Total Bilirubin 0.6 Results/Orders Lab Results Laboratory Tests Test 08/12/21 13:40 08/12/21 13:45 08/12/21 13:56 08/12/21 15:46 Range/Units White Blood Count 16.7 H 4.3-11.0 10^3/uL Red Blood Count 4.39 4.30-5.52 10^6/uL Hemoglobin 13.3 13.3-17.7 g/dL Hematocrit 40 40-54 % Mean Corpuscular Volume 91 80-99 fL Mean Corpuscular Hemoglobin 30 25-34 pg Mean Corpuscular Hemoglobin Concent 33 32-36 g/dL Red Cell Distribution Width 15.6 H 10.0-14.5 % Platelet Count 110 L 130-400 10^3/uL Mean Platelet Volume 11.0 9.0-12.2 fL Immature Granulocyte % (Auto) 1 % Neutrophils (%) (Auto) 86 H 42-75 % Lymphocytes (%) (Auto) 5 L 12-44 % Monocytes (%) (Auto) 8 0-12 % Eosinophils (%) (Auto) 0 0-10 % Basophils (%) (Auto) 0 0-10 % Neutrophils # (Auto) 14.3 H 1.8-7.8 10^3/uL Lymphocytes # (Auto) 0.9 L 1.0-4.0 10^3/uL Monocytes # (Auto) 1.4 H 0.0-1.0 10^3/uL Eosinophils # (Auto) 0.0 0.0-0.3 10^3/uL Basophils # (Auto) 0.0 0.0-0.1 10^3/uL Immature Granulocyte # (Auto) 0.1 0.0-0.1 10^3/uL Neutrophils % (Manual) 88 % Lymphocytes % (Manual) 8 % Monocytes % (Manual) 4 % Sodium Level 135 135-145 MMOL/L Potassium Level 4.0 3.6-5.0 MMOL/L Chloride Level 100 98-107 MMOL/L Carbon Dioxide Level 24 21-32 MMOL/L Anion Gap 11 5-14 MMOL/L Blood Urea Nitrogen 26 H 7-18 MG/DL Creatinine 0.71 0.60-1.30 MG/DL Estimat Glomerular Filtration Rate 97 BUN/Creatinine Ratio 37 Glucose Level 144 H 70-105 MG/DL Lactic Acid Level 2.16 *H 0.50-2.00 MMOL/L Calcium Level 9.1 8.5-10.1 MG/DL Corrected Calcium 9.3 8.5-10.1 MG/DL Total Bilirubin 0.6 0.1-1.0 MG/DL Aspartate Amino Transf (AST/SGOT) 16 5-34 U/L Alanine Aminotransferase (ALT/SGPT) 7 0-55 U/L Alkaline Phosphatase 66 40-136 U/L Total Protein 6.9 6.4-8.2 GM/DL Albumin 3.7 3.2-4.5 GM/DL Urine Color YELLOW Urine Clarity CLOUDY Urine pH 5.5 5-9 Urine Specific Jenkins >=1.030 1.016-1.022 Urine Protein 2+ H NEGATIVE Urine Glucose (UA) NEGATIVE NEGATIVE Urine Ketones NEGATIVE NEGATIVE Urine Nitrite POSITIVE H NEGATIVE Urine Bilirubin NEGATIVE NEGATIVE Urine Urobilinogen 1.0 < = 1.0 MG/DL Urine Leukocyte Esterase 1+ H NEGATIVE Urine RBC (Auto) 3+ H NEGATIVE Urine RBC NONE /HPF Urine WBC 50-100 H /HPF Urine Crystals NONE /LPF Urine Bacteria LARGE H /HPF Urine Casts NONE /LPF Urine Mucus NEGATIVE /LPF Urine Culture Indicated NO Influenza Type A Antigen NEGATIVE NEGATIVE Influenza Type B Antigen NEGATIVE NEGATIVE My Orders Orders - DANUTA DE LOS SANTOS MD Cbc With Automated Diff (08/12/21 13:49) Comprehensive Metabolic Panel (08/12/21 13:49) Blood Culture (08/12/21 13:49) Urinalysis (08/12/21 13:49) Urine Culture (08/12/21 13:49) Chest 1 View Ap/Pa Only (08/12/21 13:49) Ed Iv/Invasive Line Start (08/12/21 13:49) Lactic Acid Analyzer (08/12/21 13:49) Influenza A & B Antigens (08/12/21 13:49) Covid 19 Inhouse Test (08/12/21 13:50) Manual Differential (08/12/21 13:40) Ed Iv/Invasive Line Start (08/12/21 14:12) Ns Iv 1000 Ml (Sodium Chloride 0.9%) (08/12/21 14:15) Piperacillin Sodium/Tazobactam (Zosyn Vi (08/12/21 15:00) Acetaminophen Tablet (Tylenol Tablet) (08/12/21 14:57) Ed Iv/Invasive Line Start (08/12/21 15:44) Ns Iv 1000 Ml (Sodium Chloride 0.9%) (08/12/21 15:45) Medications Given in ED Current Medications Medications Dose Ordered Sig/Olman Route Start Time Stop Time Status Last Admin Dose Admin Piperacillin Sod/ Tazobactam Sod 4.5 gm/Sodium Chloride 100 ml @ 200 mls/hr ONCE ONCE IV 08/12/21 15:00 08/12/21 15:29 DC 08/12/21 15:25 200 MLS/HR Vital Signs/I&O 08/12/21 13:43 Temp 38.3 Pulse 94 Resp 24 B/P (MAP) 122/43 (69) Pulse Ox 95 O2 Delivery Room Air Capillary Refill : Progress Note : Progress Note 1. SEPSIS/ ACUTE CYSTITIS:/ DEHYDRATION/ AMS - - Labs unremarkable except WBC is 16 with a left shift - UA is positive for leukocyte Estrace and positive nitrites, RBC present, bacteria present. - Blood and urine cultures - NS IVF bolus x 2 in ER - Zosyn iv once STAT in ER - Tylenol prn fever - Discussed with Dr. Diaz, will admit to Med surg and order Ceftriaxone 1gm hs for tonight. Diagnostic Imaging Diagonstic Imaging: Xray Plain Films/CT/US/NM/MRI: chest Comments [facility] [place] NAME: NAHUN ROSADO [facility] REC#: [id number] PT STATUS: REG ER : 1950 PHYSICIAN: DANUTA DE LOS SANTOS MD ADMIT DATE: 08/12/21/ER FS Signed Date of Exam:08/12/21 CHEST 1 VIEW AP/PA ONLY Indication: Fever. Time of Exam: 1:49 PM Correlation is made prior chest 07/14/2021. Heart size stable. Right hemidiaphragm is chronically elevated. There is some resultant right basilar subsegmental atelectasis. Otherwise lungs are clear. There is no effusion or pneumothorax. There is no failure. IMPRESSION: Stable chronic changes. No acute cardiopulmonary process is detected. Dictated by: Dictated on workstation # [id number] Dict: 08/12/21 1418 Trans: 08/12/21 1527 [facility] [id number] Interpreted by: ALESSANDRA CARLOS MD Electronically signed by: ALESSANDRA CARLOS MD 08/12/21 1527 Departure Communication (Admissions) Time/Spoke to Admitting Phy: 14:[address] Diaz, will admit to Med surg and order Ceftriaxone 1gm hs for tonight. Impression Primary Impression: Altered mental status Qualified Codes: R41.82 - Altered mental status, unspecified Additional Impressions: Acute cystitis Qualified Codes: N30.01 - Acute cystitis with hematuria Sepsis Qualified Codes: A41.9 - Sepsis, unspecified organism Dehydration Disposition: 30 STILL A PATIENT Condition: Stable Admissions Decision to Admit Reason: Admit from ER (General) Decision to Admit/Date: Aug 12, 2021 Time/Decision to Admit Time: 14:30 Departure-Patient Inst. Referrals: DANNA BILL MD (PCP/Family) Primary Care Physician DANUTA DE LOS SANTOS MD Aug 12, 2021 13:38
[2021-08-12 13:55] LABS: BASOPHILS % (AUTO) 0 % (0-10); EOSINOPHILS % (AUTO) 0 % (0-10); HEMATOCRIT 40 % (40-54); HEMOGLOBIN 13.3 g/dL (13.3-17.7); LYMPHOCYTES # (AUTO) 0.9 10^3/uL (1.0-4.0); LYMPHOCYTES % (AUTO) 5 % (12-44); MEAN CORPUSCULAR HEMOGLOBIN 30 pg (25-34); MEAN CORPUSCULAR HGB CONC 33 g/dL (32-36); MEAN CORPUSCULAR VOLUME 91 fL (80-99); MONOCYTES # (AUTO) 1.4 10^3/uL (0.0-1.0); MONOCYTES % (AUTO) 8 % (0-12); NEUTROPHILS # (AUTO) 14.3 10^3/uL (1.8-7.8); NEUTROPHILS % (AUTO) 86 % (42-75); PLATELET COUNT 110 10^3/uL (130-400); WHITE BLOOD COUNT 16.7 10^3/uL (4.3-11.0)
[2021-08-12 13:58] LABS: BILIRUBIN,URINE NEGATIVE (NEGATIVE); COLOR,URINE YELLOW; GLUCOSE, URINE (UA) NEGATIVE (NEGATIVE); KETONES,URINE NEGATIVE (NEGATIVE); LEUKOCYTE ESTERASE ,URINE 1+ (NEGATIVE); NITRITE,URINE POSITIVE (NEGATIVE); PH,URINE 5.5 (5-9); PROTEIN,URINE 2+ (NEGATIVE)
[2021-08-12 14:02] LABS: BACTERIA,URINE LARGE /HPF; CLARITY,URINE CLOUDY; WBC,URINE 50-100 /HPF
[2021-08-12 14:07] LABS: CALCIUM 9.1 MG/DL (8.5-10.1); CREATININE SERUM 0.71 MG/DL (0.60-1.30)
[2021-08-12 14:08] LABS: ALBUMIN 3.7 GM/DL (3.2-4.5); BILIRUBIN,TOTAL 0.6 MG/DL (0.1-1.0); TOTAL PROTEIN 6.9 GM/DL (6.4-8.2)
[2021-08-12] MEDS ORDERED: NS IV 1000 ML 1,000 ML IV SCH ×2 (14:15→15:45)
[2021-08-12 14:21] LABS: LYMPHOCYTES % (MANUAL) 8 %; MONOCYTES % (MANUAL) 4 %; NEUTROPHILS % (MANUAL) 88 %
--- NOTE | 2021-08-12 14:31 | Diagnostic Imaging Report ---
Indication: Fever. Time of Exam: 1:49 PM Correlation is made prior chest 07/14/2021. Heart size stable. Right hemidiaphragm is chronically elevated. There is some resultant right basilar subsegmental atelectasis. Otherwise lungs are clear. There is no effusion or pneumothorax. There is no failure. IMPRESSION: Stable chronic changes. No acute cardiopulmonary process is detected. Dictated by: Dictated on workstation # [id number]
[2021-08-12] MEDS ORDERED: ACETAMINOPHEN 500 MG TAB (TYLENOL) PO STA (14:57)
[2021-08-12] MEDS ORDERED: PIPERACILLIN SODIUM/TAZOBACTAM 4.5 GM in NS (IVPB) 100 ML IV ONE (15:00)
[2021-08-12 17:30] VITALS: BP 96/51
--- OUTSIDE RECORDS SUMMARY | 2021-08-12 17:45 | XMS REPORT | Clinical Summary ---
Author Author [facility] Organization [facility] Address Unknown Phone Unavailable Care Team Providers Care Key Account Manager Name Role Phone Self, Lefty OSCAR PCP [...] 06/08/2020 Last Assessment & Plan: Formatting of t his note might be different from the original. 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 cerebral palsy -PT/OT/ST, VTE, Pain control/Rehab effo rts per PM&R -continue robaxin Neuropraxia of upper extremity, left, initial encount er 06/04/2020 Last Assessment & Plan: Formatting of t his note might be different from the original. S/P crush injury CT head and C-spine negative at outpati ent facility X-ray of wrist and elbow negative for f x Seen by Neurology in acute -PT -No IV sticks or blood draws from left extremity -F/U with Neurology consider EMG if sym ptoms do not improve in 4 weeks Compression injury 06/04/2020 Overview: LUE compression injury L ast Assessment & Plan: Formatting of th is note might be different from the original. S/P fall pinned between [...] 07/17/2014 Last Assessment & Plan: Formatting of t his note might be different from the original. 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 SBP trends improved since stopping Evelyne nopril, soft 06/19 asymptomatic REAL PROPERTY APPRAISER lisinopril 5mg daily -continue to Hold lisinopril for now -Monitor and restart ACEi as BP tolerat es Foot drop 05/27/2013 Sciatica 01/15/2011 Benign prostatic hyperplasia 05/08/2009 Hyperlipidemia 05/10/2008 Chronic anticoagulation Resolved Problems Problem Noted Date Resolved Date Hyponatremia 06/12/2020 06/19/2020 Last Assessment & Plan: Formatting of t his note might be different from the original. Na 131; mild normalized at 138 -monitor Traumatic rhabdomyolysis 06/04/2020 06/19/2020 Last Assessment & Plan: Formatting of t his note might be different from the original. S/p fall ; improved [...] 36.4 C (97.6 F) 06/20/2020 6:20 AM ELECTRIC RAZOR MECHANIC Temperature 16 06/20/2020 6:20 AM ELECTRIC RAZOR MECHANIC Respiratory Rate 93% 06/20/2020 6:20 AM ELECTRIC RAZOR MECHANIC Oxygen Saturation - - Inhaled Oxygen Concentration 73.5 kg (162 lb) 08/10/2020 2:55 PM CDT Weight 167.6 cm (5' 6") 08/10/2020 2:55 PM CDT Height 26.15 08/10/2020 2:55 PM CDT Body Mass Index Plan of Treatment Health Maintenance Due Date Last Done Comments Advance Care Plan 1950 Conversation Needed # Advance Care Plan 1950 Document Filed # Advance Care Planning # 1950 Colonoscopy 1950 Colorectal Cancer 1950 Screening FIT-DNA 1950 Fecal Occult Blood 1950 Hepatitis C Screen 1950 Sigmoidoscopy 1950 Zoster Vaccine# (1 of 2) 1999 COVID-19 Vaccine (3 - 01/08/2021 08/08/2020, Booster) 07/13/2020 Social Determinants of 04/21/2021 06/08/2020 Health# Fall Risk Assessment # 06/20/2021 06/20/2020 Influenza Vaccine (Season 01/19/2022 01/04/2019, Ended) 12/25/2017, 12/28/2016, Additional history exists Td/Tdap# 06/04/2030 06/04/2020 Pneumococcal Vaccine: 65+ Completed 12/28/2016, Years 01/19/2016 Results Not on filefrom Last 3 Months Insurance Type Payer Benefit Subscriber ID Effective Phone Address Plan / Dates Group MEDICAID MANAGED CARE [place] [id number] 2020- [address] STATE Present [address] [place] [id number] 1 Liban Arias Personal/F Self 1950 [address] (Home) [place], [place] [address] Advance Directives For more information, please contact: [phone] 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 Explanation Type Date Recorded Advance Directives 06/08/2020 and Living Will Power of Furniture Mechanic 06/08/2020 Health Care 06/08/2020 6:23 PM Directive Date Inactivated Comments Code Status Date Activated 06/20/2020 4:13 PM Full Code 06/08/2020 1:47 PM 06/08/2020 1:46 PM Full Code 06/04/2020 9:03 PM Relationship Healthcare Agent Relationship Communicat ion Name Sister Power of Furniture Mechanic [phone] (Mobile ) Anne Rodriguez Care Teams Start Date End Date Key Account Manager Relationship Specialty 06/04/20 Lefty Purvis MD PCP - General Family [address] [place] [address] [place] [address]
[2021-08-12 19:39] VITALS: BP 125/70
[2021-08-12] MEDS: cefTRIAXone 1 GM PRE-MIX 50 ML IV SCH (21:24)
[2021-08-12] MEDS: NS IV 1000 ML 1,000 ML IV SCH (21:24)
[2021-08-12 23:23] VITALS: BP 122/43
[2021-08-13 00:51] VITALS: BP 90/51
[2021-08-13] MEDS: NS IV 1000 ML 1,000 ML IV SCH ×4 (04:54→21:35)
[2021-08-13 04:57] VITALS: BP 106/70
[2021-08-13] MEDS ORDERED: CATHETER FLUSH 10 ML SYR IV PRN (07:00)
[2021-08-13 07:55] LABS: BASOPHILS % (AUTO) 0 % (0-10); EOSINOPHILS % (AUTO) 0 % (0-10); HEMATOCRIT 39 % (40-54); HEMOGLOBIN 12.4 g/dL (13.3-17.7); LYMPHOCYTES # (AUTO) 1.1 10^3/uL (1.0-4.0); LYMPHOCYTES % (AUTO) 9 % (12-44); MEAN CORPUSCULAR HEMOGLOBIN 31 pg (25-34); MEAN CORPUSCULAR HGB CONC 32 g/dL (32-36); MEAN CORPUSCULAR VOLUME 97 fL (80-99); MEAN PLATELET VOLUME 10.8 fL (9.0-12.2); MONOCYTES # (AUTO) 1.3 10^3/uL (0.0-1.0); MONOCYTES % (AUTO) 11 % (0-12); NEUTROPHILS # (AUTO) 9.7 10^3/uL (1.8-7.8); NEUTROPHILS % (AUTO) 80 % (42-75); PLATELET COUNT 93 10^3/uL (130-400); WHITE BLOOD COUNT 12.2 10^3/uL (4.3-11.0)
[2021-08-13 08:00] VITALS: BP 115/72
[2021-08-13 08:00] LABS: CALCIUM 8.1 MG/DL (8.5-10.1)
[2021-08-13 08:04] LABS: CREATININE SERUM 0.64 MG/DL (0.60-1.30)
[2021-08-13] MEDS: cefTRIAXone 1 GM PRE-MIX 50 ML IV SCH (08:06)
[2021-08-13] MEDS: CATHETER FLUSH 10 ML SYR IV SCH ×2 (08:07→21:36)
[2021-08-13 08:10] LABS: SMEAR SCAN COMMENT YES
[2021-08-13] MEDS ORDERED: CNC1KV SC (11:06)
[2021-08-13] MEDS ORDERED: GABA300C PO (11:06)
[2021-08-13] MEDS ORDERED: RISP0.5T65 PO (11:06)
[2021-08-13] MEDS ORDERED: PRAV40TA2 PO (11:06)
[2021-08-13] MEDS ORDERED: DIPH25TA65 PO (11:06)
[2021-08-13] MEDS ORDERED: TMSL.4C PO (11:06)
[2021-08-13] MEDS ORDERED: MAGN400O7 PO (11:06)
[2021-08-13] MEDS ORDERED: CYCL5TAB PO (11:06)
[2021-08-13] MEDS ORDERED: SENN-145 PO (11:06)
[2021-08-13] MEDS ORDERED: SERT-413 PO (11:06)
[2021-08-13] MEDS ORDERED: ALPR0.254 PO (11:06)
[2021-08-13] MEDS ORDERED: ACET-2267 PO ×2 (11:06)
[2021-08-13] MEDS ORDERED: POLY17PO6 PO (11:06)
[2021-08-13] MEDS ORDERED: BISA10SU8 RC (11:06)
[2021-08-13] MEDS ORDERED: ONDA-105 PO (11:06)
[2021-08-13] MEDS ORDERED: CARB15DR OU (11:06)
[2021-08-13] MEDS ORDERED: BACL10TA PO (11:06)
[2021-08-13 12:00] VITALS: BP 104/60
--- NOTE | 2021-08-13 12:37 | History & Physical ---
HPI History of Present Illness: 71 yo M who resides in [place] that has had recurrent UTIs. Patient was sent to ER after he was found to be more confused and not acting like his normal self. Patient has chronic indwelling laureano cath. He denies any fever or chills but he does state that he was more confused. No recent medication changes. Denies missing any doses of medications. States that his urine was darker and had some increase in sediment. This AM patient seems to be at his baseline. He is alert and oriented. Denies any pain, shortness of breath or fever. Requires feeding but ate breakfast and has a good appetite Source: patient[facility] records Exam Limitations: no limitations Date seen by provider: Aug 13, 2021 Time Seen by Provider: 10:45 Attending Physician Nj Diaz MD PCP Lefty Purvis MD Consult Date of Admission Aug 12, 2021 at 17:30 Home Medications Home Medications Reviewed patient Home Medication Reconciliation performed by pharmacy medication reconciliations glass technician/installer and/or nursing. Patients Allergies have been reviewed. Allergies Coded Allergies: codeine (Verified Adverse Reaction, Mild, NAUSEA, 09/03/17) cyclobenzaprine (Unverified Adverse Reaction, Unknown, 06/04/20) unknown allergy, found on [facility] records tramadol (Unverified Adverse Reaction, Unknown, 06/04/20) unknown, found on [facility] Records [id number] Hx Patient Social History Smoking Status: Never a Smoker 2nd Hand Smoke Exposure: No Recent Hopitalizations: No Alcohol Use?: No Have you traveled recently?: No Immunizations Up To Date Tetanus Booster (TDap): Unknown Influenza Vaccine Up-to-Date: Yes; Up-to-Date COVID19 Vaccine Order Schedule Clerk: patient reports he has had 2 and a booster not sure of what brand name Past Medical History Atrial Fibrillation Chronic Indwelling catheter BPH Anxiety Depression Review of Systems ([facility]) Constitutional: malaise, weakness EENTM: no symptoms reported Respiratory: no symptoms reported Cardiovascular: no symptoms reported Gastrointestinal: abdominal pain, loss of appetite Genitourinary: decreased output Musculoskeletal: no symptoms reported Skin: rash Psychiatric/Neurological: No Symptoms Reported Reviewed Test Results Reviewed Test Results Lab Laboratory Tests Test 08/12/21 15:46 08/13/21 07:40 Range/Units Lactic Acid Level 1.53 1.39 0.50-2.00 MMOL/L White Blood Count 12.2 H 4.3-11.0 10^3/uL Red Blood Count 4.06 L 4.30-5.52 10^6/uL Hemoglobin 12.4 L 13.3-17.7 g/dL Hematocrit 39 L 40-54 % Mean Corpuscular Volume 97 80-99 fL Mean Corpuscular Hemoglobin 31 25-34 pg Mean Corpuscular Hemoglobin Concent 32 32-36 g/dL Red Cell Distribution Width 15.7 H 10.0-14.5 % Platelet Count 93 L 130-400 10^3/uL Mean Platelet Volume 10.8 9.0-12.2 fL Immature Granulocyte % (Auto) 0 % Neutrophils (%) (Auto) 80 H 42-75 % Lymphocytes (%) (Auto) 9 L 12-44 % Monocytes (%) (Auto) 11 0-12 % Eosinophils (%) (Auto) 0 0-10 % Basophils (%) (Auto) 0 0-10 % Neutrophils # (Auto) 9.7 H 1.8-7.8 10^3/uL Lymphocytes # (Auto) 1.1 1.0-4.0 10^3/uL Monocytes # (Auto) 1.3 H 0.0-1.0 10^3/uL Eosinophils # (Auto) 0.0 0.0-0.3 10^3/uL Basophils # (Auto) 0.0 0.0-0.1 10^3/uL Immature Granulocyte # (Auto) 0.1 0.0-0.1 10^3/uL Percent Immature Platelet Fraction 4.0 0.0-7.6 % Sodium Level 137 135-145 MMOL/L Potassium Level 4.0 3.6-5.0 MMOL/L Chloride Level 106 98-107 MMOL/L Carbon Dioxide Level 19 L 21-32 MMOL/L Anion Gap 12 5-14 MMOL/L Blood Urea Nitrogen 22 H 7-18 MG/DL Creatinine 0.64 0.60-1.30 MG/DL Estimat Glomerular Filtration Rate 101 BUN/Creatinine Ratio 34 Glucose Level 93 70-105 MG/DL Calcium Level 8.1 L 8.5-10.1 MG/DL Smear Scan YES Physical Exam-([facility]) Physical Exam Vital Signs VS - Last 72 Hours, by Label 08/12/21 08/12/21 08/12/21 08/12/21 13:43 16:14 16:18 17:30 Temp 38.3 36.7 36.7 37.6 Pulse 94 89 89 74 Resp 24 21 21 18 B/P (MAP) 122/43 (69) 126/64 126/64 96/51 (66) Pulse Ox 95 94 94 94 O2 Delivery Room Air Room Air Room Air Room Air 08/12/21 08/12/21 08/12/21 08/12/21 18:12 19:00 19:39 20:00 Temp 37.0 Pulse 70 76 Resp 18 B/P (MAP) 125/70 (88) Pulse Ox 96 O2 Delivery Room Air Room Air Room Air 08/12/21 08/13/21 08/13/21 08/13/21 23:23 00:51 01:00 04:57 Temp 38.3 38.0 37.5 Pulse 94 83 84 76 Resp 18 17 B/P (MAP) 90/51 (64) 106/70 (82) Pulse Ox 95 93 93 O2 Delivery Room Air Room Air FiO2 21 08/13/21 08/13/21 08/13/21 08/13/21 07:50 08:00 08:08 12:00 Temp 37.6 38.1 Pulse 82 71 72 Resp 17 17 B/P (MAP) 115/72 (86) 104/60 (75) Pulse Ox 90 94 O2 Delivery Room Air Room Air Room Air Capillary Refill : Less Than 3 Seconds General Appearance: no apparent distress, other (UE with bilateral contractures) Respiratory: chest non-tender, lungs clear, normal breath sounds, no respiratory distress, no accessory muscle use Cardiovascular: normal peripheral pulses, regular rate, rhythm, no murmur Gastrointestinal: normal bowel sounds, soft Extremities: no pedal edema, normal capillary refill, other (Flaky, dry skin on legs,arms and face) Neurologic/Psychiatric: statistics manager II-XII nml as tested, alert, normal mood/affect, oriented x 3 Skin: other (buttock pressure wounds), rash Lymphatic: no adenopathy Assessment/Plan Assessment/Plan Admission Status: Inpatient Order (span 2 midnights) Reason for Inpatient Admission: Patient with recurrent catheter associated UTIs and high risk of decompensation and needs to be monitor until C/s results return (1) Sepsis Status: Acute Assessment & Plan: - Urine culture with Ecoli, await C/s results, continue IV Rocephin, IVFs Qualifiers: Qualified Codes: A41.51 - Sepsis due to Escherichia coli [e. coli] (2) Cystitis with hematuria Status: Acute (3) E-coli UTI (4) Chronic indwelling Laureano catheter (5) Atrial fibrillation, controlled Status: Chronic Assessment & Plan: - Rate controlled, Continue OAC (6) Chronic anticoagulation Status: Acute (7) Altered mental status Status: Resolved Qualifiers: Qualified Codes: R41.82 - Altered mental status, unspecified ELENA GARCIA MD Aug 13, 2021 12:37
[2021-08-13] MEDS ORDERED: ACETAMINOPHEN 500 MG TAB (TYLENOL) PO PRN (12:45)
[2021-08-13 15:30] VITALS: BP 128/63
[2021-08-13 20:00] VITALS: BP 98/54
[2021-08-13] MEDS ORDERED: ALPRAZolam 0.25 MG (XANAX) TAB PO SCH (21:00)
[2021-08-13] MEDS ORDERED: SERTRALINE 50 MG (ZOLOFT) TABLET PO SCH (21:00)
[2021-08-13] MEDS ORDERED: SIMvastatin 20 MG (ZOCOR) TAB PO SCH (21:00)
[2021-08-13] MEDS ORDERED: NON-FORMULARY MEDICATION 1 EA EA (Pravastatin Sodium 40 MG) PO SCH (21:00)
[2021-08-13] MEDS: GABAPENTIN 300 MG (NEURONTIN) CAP PO SCH (21:35)
[2021-08-13] MEDS: BACLOFEN 10 MG (LIORESAL) TAB PO SCH (21:35)
[2021-08-13] MEDS: risperiDONE 0.5 MG (RisperDAL) TABLET PO SCH (21:35)
[2021-08-13] MEDS: APIXABAN 5 MG (ELIQUIS) TABLET PO SCH (21:36)
[2021-08-14 00:22] VITALS: BP 93/64
[2021-08-14] MEDS: NS IV 1000 ML 1,000 ML IV SCH ×2 (04:14→11:40)
[2021-08-14 04:30] VITALS: BP 97/61
[2021-08-14] MEDS: CATHETER FLUSH 10 ML SYR IV SCH (05:31)
[2021-08-14 06:08] LABS: BASOPHILS % (AUTO) 0 % (0-10); EOSINOPHILS # (AUTO) 0.2 10^3/uL (0.0-0.3); EOSINOPHILS % (AUTO) 2 % (0-10); HEMATOCRIT 35 % (40-54); HEMOGLOBIN 11.2 g/dL (13.3-17.7); LYMPHOCYTES # (AUTO) 0.7 10^3/uL (1.0-4.0); LYMPHOCYTES % (AUTO) 8 % (12-44); MEAN CORPUSCULAR HEMOGLOBIN 30 pg (25-34); MEAN CORPUSCULAR HGB CONC 32 g/dL (32-36); MEAN CORPUSCULAR VOLUME 94 fL (80-99); MONOCYTES % (AUTO) 12 % (0-12); NEUTROPHILS # (AUTO) 6.8 10^3/uL (1.8-7.8); NEUTROPHILS % (AUTO) 78 % (42-75); PLATELET COUNT 82 10^3/uL (130-400); WHITE BLOOD COUNT 8.7 10^3/uL (4.3-11.0)
[2021-08-14 06:36] LABS: ALBUMIN 2.8 GM/DL (3.2-4.5); BILIRUBIN,TOTAL 0.5 MG/DL (0.1-1.0); CALCIUM 8.1 MG/DL (8.5-10.1); CREATININE SERUM 0.53 MG/DL (0.60-1.30); POTASSIUM 3.8 MMOL/L (3.6-5.0); TOTAL PROTEIN 5.6 GM/DL (6.4-8.2)
[2021-08-14 07:28] VITALS: BP 100/61
[2021-08-14] MEDS ORDERED: CYCLOBENZAPRINE 10 MG (FLEXERIL) TAB PO PRN (07:45)
[2021-08-14] MEDS: GABAPENTIN 300 MG (NEURONTIN) CAP PO SCH (08:51)
[2021-08-14] MEDS: risperiDONE 0.5 MG (RisperDAL) TABLET PO SCH ×2 (08:51→13:06)
[2021-08-14] MEDS: BACLOFEN 10 MG (LIORESAL) TAB PO SCH ×2 (08:52→13:06)
[2021-08-14] MEDS: APIXABAN 5 MG (ELIQUIS) TABLET PO SCH (08:52)
[2021-08-14] MEDS: cefTRIAXone 1 GM PRE-MIX 50 ML IV SCH (08:52)
[2021-08-14] MEDS ORDERED: TAMSULOSIN 0.4 MG (FLOMAX) CAP PO SCH (09:00)
[2021-08-14] MEDS ORDERED: FINASTERIDE (PROSCAR) 5 MG TAB PO SCH (09:00)
[2021-08-14 11:28] VITALS: BP 102/66
--- NOTE | 2021-08-14 12:50 | Discharge Summary ---
Diagnosis/Chief Complaint Date of Admission Aug 12, 2021 at 17:30 Date of Discharge 08/14/21 Admission Diagnosis Admission Diagnosis See problem list Discharge Diagnosis See below Problems/Diagnosis: (1) Sepsis Assessment & Plan: - Urine culture with Ecoli, await C/s results, continue IV Rocephin, IVFs 08/14: Will transition to to PO and d/c back to NH Qualifiers: Qualified Codes: A41.51 - Sepsis due to Escherichia coli [e. coli] Status: Resolved Resolution Date/Time: 08/14/21 @ 12:43 (2) Cystitis with hematuria Status: Acute (3) E-coli UTI Status: Acute (4) Chronic indwelling Laureano catheter Status: Chronic (5) Atrial fibrillation, controlled Assessment & Plan: - Rate controlled, Continue OAC Status: Chronic (6) Chronic anticoagulation Status: Acute (7) Altered mental status Qualifiers: Qualified Codes: R41.82 - Altered mental status, unspecified Status: Resolved Resolution Date/Time: 08/13/21 @ 14:58 Chief Complaint/HPI Chief Complaint/HPI 71 yo M who resides in [place] that has had recurrent UTIs. Patient was sent to ER after he was found to be more confused and not acting like his normal self. Patient has chronic indwelling laureano cath. He denies any fever or chills but he does state that he was more confused. No recent medication changes. Denies missing any doses of medications. States that his urine was darker and had some increase in sediment. This AM patient seems to be at his baseline. He is alert and oriented. Denies any pain, shortness of breath or fever. Requires feeding but ate breakfast and has a good appetite Discharge Summary-Simple/Stand Consultations Discharge Physical Examination Allergies: Coded Allergies: codeine (Verified Adverse Reaction, Mild, NAUSEA, 09/03/17) cyclobenzaprine (Unverified Adverse Reaction, Unknown, 06/04/20) unknown allergy, found on [facility] records tramadol (Unverified Adverse Reaction, Unknown, 06/04/20) unknown, found on [facility] Records Vitals & I&Os Vital Sign - Last 12Hours Date Time Temp Pulse Resp B/P (MAP) Pulse Ox O2 Delivery O2 Flow Rate FiO2 08/14/21 11:28 37.1 97 18 102/66 (78) 95 Room Air 08/14/21 08:16 0.00 08/12/21 23:23 21 Intake and Output 08/14/21 00:00 Intake Total 1570 ml Output Total 625 ml Balance 945 ml General Appearance: Alert, Oriented X3 Respiratory: Clear to Auscultation, Normal Air Movement Cardiovascular: Regular Rate, No Murmurs Abdominal: Normal Bowel Sounds, Soft, No Tenderness Extremities: Other (chronic contractures) Neuro: Normal Speech Hospital Course See final discharge diagnosis. Discussion & Recommendations 71 yo M sent to ER for confusion with h/o recurrnt UTIs with chronic indwelling catheter. Patient found to have Ecoli UTI. Discharge Condition at discharge Stable Instructions to patient/family Please see electronic discharge instructions given to patient. Discharge Medications Reviewed and agree with Discharge Medication list on patient's Discharge Instruction sheet ELENA GARCIA MD Aug 14, 2021 12:50
[2021-08-14] MEDS ORDERED: CEFD300C3 PO (12:51)
--- NOTE | 2021-08-14 12:52 | Discharge Summary ---
Discharge [facility] Reconcile Patient Problems Problems Reviewed?: Yes Discharge Medications New Medications: Cefdinir (Cefdinir) 300 Mg Capsule 300 MG PO BID for 5 Days, #10 CAP Continued Medications: Acetaminophen (Tylenol Extra Strength) 500 Mg Tablet 1000 MG PO Q8H PRN for PAIN-MILD (1-4), TAB Acetaminophen (Tylenol Extra Strength) 500 Mg Tablet 500 MG PO Q12H PRN for TEMPERATURE, TAB ALPRAZolam (ALPRAZolam) 0.25 Mg Tablet 0.25 MG PO HS, TAB Apixaban (Eliquis) 5 Mg Tablet 5 MG PO BID, TAB Baclofen (Baclofen) 10 Mg Tablet 10 MG PO TID, TAB Bisacodyl (Bisacodyl) 10 Mg Supp.rect 10 MG RC DAILY PRN for CONSTIPATION-4TH LINE, SUPP.RECT USE IF NO RESULTS FROM MAGNESIUM HYDROXIDE Carboxymethylcellulose Sodium (Refresh Tears) 0.5 % Drops 1 DROP OU EVERY 1 HOUR PRN for DRY EYES, DROPS Cyanocobalamin (Cyanocobalamin Injection) 1,000 Mcg/Ml Inj 1000 MCG SC MON, MCG Cyclobenzaprine HCl (Cyclobenzaprine HCl) 5 Mg Tablet 5 MG PO Q6H PRN for MUSCLE SPASMS, TAB Diphenhydramine HCl (Benadryl Allergy) 25 Mg Tablet 50 MG PO Q6H PRN for RASH, TAB Dutasteride (Avodart) 0.5 Mg Cap 0.5 MG PO DAILY, CAP Gabapentin (Neurontin) 300 Mg Capsule 300 MG PO BID, CAP Magnesium Hydroxide (Milk of Magnesia) 400 Mg/5 Ml Oral.susp 15-30 ML PO Q6H PRN for CONSTIPATION-7TH LINE, ML Ondansetron HCl (Ondansetron HCl) 4 Mg Tablet 4 MG PO Q6H PRN for NAUSEA/VOMITING-1ST LINE, TAB Polyethylene Glycol 3350 (Miralax) 17 Gram Powd.pack 17 GM PO DAILY, EACH Pravastatin Sodium (Pravastatin Sodium) 40 Mg Tablet 40 MG PO HS, TAB Risperidone (Risperidone) 0.5 Mg Tablet 0.5 MG PO TID, TAB Sennosides/Docusate Sodium (Senna S Tablet) 8.6 Mg-50 Mg Tablet 2 EACH PO BID, TAB Sertraline HCl (Sertraline HCl) 50 Mg Tablet 50 MG PO HS, TAB Tamsulosin HCl (Flomax) 0.4 Mg Cap 0.4 MG PO DAILY, CAP ELENA GARCIA MD Aug 14, 2021 12:52
[2021-08-14] MEDS ORDERED: LEVO500T81 PO (12:54)
== END 2021-08-14 14:08 | DRG 698 ==
LOC: EDUNIT# 13:33 → ER FS 13:35 → 4TH 17:30
PROVIDERS: ADMIT Internal Medicine; ATTEND Family Medicine
DX: T83.511A Infection and inflammatory reaction due to indwelling urethral catheter, initial encounter (principal); A41.51 Sepsis due to Escherichia coli [E. coli]; N30.01 Acute cystitis with hematuria; B96.20 Unspecified Escherichia coli [E. coli] as the cause of diseases classified elsewhere; E86.0 Dehydration; I48.91 Unspecified atrial fibrillation; F41.9 Anxiety disorder, unspecified; F32.A Depression, unspecified; N40.0 Benign prostatic hyperplasia without lower urinary tract symptoms; Z79.01 Long term (current) use of anticoagulants; Z20.822 Contact with and (suspected) exposure to COVID-19
CPT/HCPCS: 36415; 71045; 80048; 80053; 81000; 83605; 85007; 85025; 85027; 87040; 87077; 87088; 87186; 87636; 87804; 94760

== ENCOUNTER 2021-10-08 16:52 | Emergency (ER) | payer MEDICAID ==
--- NOTE | 2021-10-08 16:57 | ED GU-Male ---
General Stated Complaint: SEPSIS,DEHYDRATED History of Present Illness Date Seen by Provider: Oct 08, 2021 Time Seen by Provider: 16:56 Initial Comments 71-year-old [facility] patient has a chronic indwelling Bañuelos catheter. He was found to be febrile earlier today. They gregory labs and he was found to have elevated white count, urinary tract infection. Patient's primary care office was contacted and wanted him sent to the ER to be further evaluated. Upon arrival patient not afebrile since he received Tylenol in route. He is nontoxic has no complaints. I do have the ability to do IV medication at the [facility] and are okay with him coming back if no other concerns. Patient upon arrival is at his baseline mentation. Allergies and Home Medications Allergies Coded Allergies: codeine (Verified Adverse Reaction, Mild, NAUSEA, 09/03/17) cyclobenzaprine (Unverified Adverse Reaction, Unknown, 06/04/20) unknown allergy, found on [facility] records tramadol (Unverified Adverse Reaction, Unknown, 06/04/20) unknown, found on [facility] Records Patient Home Medication List Home Medication List Reviewed: Yes ALPRAZolam (ALPRAZolam) 0.25 Mg Tablet, 0.25 MG PO HS, (Reported) Entered as Reported by: OWEN FLORES on 08/13/21 1106 Acetaminophen (Tylenol Extra Strength) 500 Mg Tablet, 1,000 MG PO Q8H PRN for PAIN-MILD (1-4), (Reported) Entered as Reported by: OWEN FLORES on 08/13/21 1106 Acetaminophen (Tylenol Extra Strength) 500 Mg Tablet, 500 MG PO Q12H PRN for TEMPERATURE, (Reported) Entered as Reported by: OWEN FLORES on 08/13/21 1106 Apixaban (Eliquis) 5 Mg Tablet, 5 MG PO BID, (Reported) Entered as Reported by: BERNABE WYMAN on 09/03/17 1014 Baclofen (Baclofen) 10 Mg Tablet, 10 MG PO TID, (Reported) Entered as Reported by: OWEN FLORES on 08/13/21 110 Bisacodyl (Bisacodyl) 10 Mg Supp.rect, 10 MG RC DAILY PRN for CONSTIPATION-4TH LINE, (Reported) Entered as Reported by: OWEN FLORES on 08/13/211105 Carboxymethylcellulose Sodium (Refresh Tears) 0.5 % Drops, 1 DROP OU EVERY 1 HOUR PRN for DRY EYES, (Reported) Entered as Reported by: OWEN FLORES on 08/13/211105 Cyanocobalamin (Cyanocobalamin Injection) 1,000 Mcg/Ml Inj, 1,000 MCG SC MON, ( Reported) Entered as Reported by: OWEN FLORES on 08/13/211105 Cyclobenzaprine HCl (Cyclobenzaprine HCl) 5 Mg Tablet, 5 MG PO Q6H PRN for MUSCLE SPASMS, (Reported) Entered as Reported by: OWEN FLORES on 08/13/211105 Diphenhydramine HCl (Benadryl Allergy) 25 Mg Tablet, 50 MG PO Q6H PRN for RASH, (Reported) Entered as Reported by: OWEN FLORES on 08/13/211105 Dutasteride (Avodart) 0.5 Mg Cap, 0.5 MG PO DAILY, (Reported) Entered as Reported by: BERNABE WYMAN on 09/03/17 1014 Gabapentin (Neurontin) 300 Mg Capsule, 300 MG PO BID, (Reported) Entered as Reported by: OWEN FLORES on 08/13/211105 Levofloxacin (Levofloxacin) 500 Mg Tablet, 500 MG PO DAILY Prescribed by: ELENA GARCIA on 08/14/21 1254 Magnesium Hydroxide (Milk of Magnesia) 400 Mg/5 Ml Oral.susp, 15-30 ML PO Q6H PRN for CONSTIPATION-7TH LINE, (Reported) Entered as Reported by: OWEN FLORES on 08/13/211105 Ondansetron HCl (Ondansetron HCl) 4 Mg Tablet, 4 MG PO Q6H PRN for NAUSEA/VOMITING-1ST LINE, (Reported) Entered as Reported by: OWEN FLORES on 08/13/211105 Polyethylene Glycol 3350 (Miralax) 17 Gram Powd.pack, 17 GM PO DAILY, (Reported) Entered as Reported by: OWEN FLORES on 08/13/211105 Pravastatin Sodium (Pravastatin Sodium) 40 Mg Tablet, 40 MG PO HS, (Reported) Entered as Reported by: OWEN FLORES on 08/13/211105 Risperidone (Risperidone) 0.5 Mg Tablet, 0.5 MG PO TID, (Reported) Entered as Reported by: OWEN FLORES on 08/13/211105 Sennosides/Docusate Sodium (Senna S Tablet) 8.6 Mg-50 Mg Tablet, 2 EACH PO BID, (Reported) Entered as Reported by: OWEN FLORES on 08/13/211105 Sertraline HCl (Sertraline HCl) 50 Mg Tablet, 50 MG PO HS, (Reported) Entered as Reported by: OWEN FLORES on 08/13/21 110 Tamsulosin HCl (Flomax) 0.4 Mg Cap, 0.4 MG PO DAILY, (Reported) Entered as Reported by: OWEN FLORES on 08/13/211105 Review of Systems Review of Systems Constitutional: fever EENTM: no symptoms reported Respiratory: no symptoms reported Cardiovascular: no symptoms reported Genitourinary: see HPI Musculoskeletal: no symptoms reported Skin: no symptoms reported Psychiatric/Neurological: No Symptoms Reported Endocrine: No Symptoms Reported Past Hdygsnk-Rekypb-Grmcuy Hx Immunizations Up To Date Tetanus Booster (TDap): Unknown Seasonal Allergies Seasonal Allergies: Yes Past Medical History Surgeries: Yes Gallbladder Respiratory: No Cardiac: Yes Atrial Fibrillation, Heart Murmur Neurological: No Genitourinary: Yes UTI-Chronic Gastrointestinal: No Musculoskeletal: Yes (STENOSIS OF THE SPINE) Foot Drop Endocrine: Yes (THYROID ISSUES) HEENT: Yes Cataract Psychosocial: No Integumentary: Yes Psoriasis Physical Exam Vital Signs Vital Signs - First Documented 10/08/21 17:24 Temp 37.8 Pulse 103 Resp 22 B/P (MAP) 139/93 (108) Pulse Ox 94 O2 Delivery Room Air Capillary Refill : Height, Weight, BMI Height: 5'5.00" Weight: 152lbs. oz. 68.020018ks; 24.21 BMI Method:Stated General Appearance: WD/WN, no apparent distress HEENT: PERRL/EOMI Cardiovascular: normal peripheral pulses, regular rate, rhythm Respiratory: lungs clear, normal breath sounds Gastrointestinal: non tender, soft Male: other (Indwelling catheter in place with some mild bloody urine) Neurologic/Psychiatric: alert, normal mood/affect, other (Baseline mentation) Skin: normal color, warm/dry Progress/Results/Core Measures Suspected Sepsis SIRS Temperature: Pulse: Respiratory Rate: Blood Pressure / Mean: Results/Orders My Orders Orders - FRANSICO CHO DO Ceftriaxone 1 Gm Pre-Mix (Rocephin 1 Gm (10/08/21 17:02) Levofloxacin Tablet (Levaquin Tablet) (10/08/21 17:02) Ed Iv/Invasive Line Start (10/08/21 17:02) Ns Iv 500 Ml (Sodium Chloride 0.9%) (10/08/21 17:15) Medications Given in ED Current Medications Medications Dose Ordered Sig/Olman Route Start Time Stop Time Status Last Admin Dose Admin Sodium Chloride 500 ml @ 0 mls/hr Q0M ONCE IV 10/08/21 17:15 10/08/21 17:16 DC 10/08/21 17:11 0 MLS/HR Vital Signs/I&O 10/08/21 17:24 Temp 37.8 Pulse 103 Resp 22 B/P (MAP) 139/93 (108) Pulse Ox 94 O2 Delivery Room Air Capillary Refill : Progress Note : Progress Note Patient with no acute physical findings besides some mild hematuria in his Bañuelos bag otherwise he is at his baseline. I reviewed labs that were taken earlier this afternoon from the [facility]. He does have a slight elevation of white count. He does have a urinalysis consistent with a UTI. Patient does have chronic UTIs. I did review his previous 3 urine microbiology's. Based on his previous microbiology's I will never cover him with Levaquin and Rocephin since his previous micro analysis has been positive for both resistance and coverage to both of those. That she is given broad-spectrum until a urine culture returns and then could be streamlined. Patient is okay to be sent back to the [facility] and [facility] was able to do IV Rocephin along with p.o. Levaquin 500 mg daily. Patient was stable upon discharge back Departure Impression Primary Impression: Urinary tract infection Qualified Codes: T83.511A - Infection and inflammatory reaction due to indwelling urethral catheter, initial encounter; N39.0 - Urinary tract infection, site not specified Additional Impression: Chronic indwelling Bañuelos catheter Disposition: 01 HOME, SELF-CARE Condition: Stable Departure-Patient Inst. Referrals: DANNA PURVIS MD (PCP/Family) Primary Care Physician Patient Instructions: Urinary Tract Infection, Adult (DC) Add. Discharge Instructions: Please follow-up with Dr. Purvis is an 5 days for recheck of Once urine culture returns please contact Dr. Purvis to streamline antibiotic tr eat Return to the ER as needed FRANSICO CHO DO Oct 08, 2021 16:56
[2021-10-08] MEDS ORDERED: cefTRIAXone 1 GM PRE-MIX 50 ML IV STA (17:02)
[2021-10-08] MEDS ORDERED: NS IV 500 ML 500 ML IV ONE (17:15)
[2021-10-08 17:24] VITALS: BP 139/93
== END 2021-10-08 17:55 | disposition home or self-care (01) ==
LOC: EDUNIT# 16:52 → ER FS 16:54
DX: N39.0 Urinary tract infection, site not specified (principal); Z96.0 Presence of urogenital implants

== ENCOUNTER → 2021-10-08 | Outpatient (CLI) | payer MEDICAID ==
[~2021-10-08] MED LIST changes: +ACET-2267 PO; +ALPR0.254 PO; +BACL10TA PO; +BISA10SU8 RC; +CARB15DR OU; +CEFD300C3 PO; +CNC1KV SC; +CYCL5TAB PO; +DIPH25TA65 PO; -FEXO-249 PO; +GABA300C PO; +MAGN400O7 PO; +NF-ALLE180 PO; +ONDA-105 PO; +POLY17PO6 PO; +PRAV40TA2 PO; +RISP0.5T65 PO; +SENN-145 PO; +SERT-413 PO; +TMSL.4C PO
[2021-10-08 15:05] LABS: BILIRUBIN,URINE 1+ (NEGATIVE); CLARITY,URINE CLOUDY; COLOR,URINE RED; GLUCOSE, URINE (UA) NEGATIVE (NEGATIVE); KETONES,URINE NEGATIVE (NEGATIVE); LEUKOCYTE ESTERASE ,URINE 3+ (NEGATIVE); NITRITE,URINE POSITIVE (NEGATIVE); PH,URINE 8.5 (5-9); PROTEIN,URINE 2+ (NEGATIVE)
[2021-10-08 15:07] LABS: HEMATOCRIT 43 % (40-54); HEMOGLOBIN 14.1 g/dL (13.3-17.7); MEAN CORPUSCULAR HEMOGLOBIN 30 pg (25-34); MEAN CORPUSCULAR HGB CONC 33 g/dL (32-36); MEAN CORPUSCULAR VOLUME 92 fL (80-99); MEAN PLATELET VOLUME 13.2 fL (9.0-12.2); PLATELET COUNT 75 10^3/uL (130-400); WHITE BLOOD COUNT 13.7 10^3/uL (4.3-11.0)
[2021-10-08 15:13] LABS: BILIRUBIN,TOTAL 0.4 MG/DL (0.1-1.0); CALCIUM 9.1 MG/DL (8.5-10.1); CREATININE SERUM 0.69 MG/DL (0.60-1.30); POTASSIUM 4.2 MMOL/L (3.6-5.0); TOTAL PROTEIN 7.2 GM/DL (6.4-8.2)
[2021-10-08 15:14] LABS: BACTERIA,URINE LARGE /HPF; RBC,URINE TNTC /HPF
== END ==
PROVIDERS: ATTEND Family Medicine
DX: R31.9 Hematuria, unspecified (principal)
CPT/HCPCS: 80053; 81000; 85027; 87088

== ENCOUNTER 2021-10-09 05:17 | Emergency (ER) | payer MEDICAID ==
[~2021-10-09] VITALS: Ht 180.3 cm; Wt 68.0 kg
--- NOTE | 2021-10-09 05:25 | ED General ---
General Stated Complaint: AFIB/RUR History of Present Illness Date Seen by Provider: Oct 09, 2021 Time Seen by Provider: 05:25 Initial Comments 71-year-old male brought in with gross bleeding from his penis. Patient was seen by me today earlier with a urinary tract infection. At that time was started on 500 mg Levaquin once daily and 1 g of Rocephin once daily and a 500 mL bolus. Patient was alert at his baseline and was sent back for IV antibiotics and Levaquin at the long-term. When he was here previously he had just a little bit of mild pink tinge to his urine. Throughout the day he developed worse hematuria. The long-term attempted to change his Laureano and in the process that he developed significant worse gross hematuria. Patient became tachycardic, short of breath, with A. fib with RVR. When EMS arrived they report he had O2 saturations in the 80s. Upon his prior ER visit there was no reports of any cough shortness of breath or respiratory concerns. Allergies and Home Medications Allergies Coded Allergies: codeine (Verified Adverse Reaction, Mild, NAUSEA, 09/03/17) cyclobenzaprine (Unverified Adverse Reaction, Unknown, 06/04/20) unknown allergy, found on [facility] records tramadol (Unverified Adverse Reaction, Unknown, 06/04/20) unknown, found on [facility] Records Patient Home Medication List Home Medication List Reviewed: Yes ALPRAZolam (ALPRAZolam) 0.25 Mg Tablet, 0.25 MG PO HS, (Reported) Entered as Reported by: OWEN FLORES on 08/13/21 1106 Acetaminophen (Tylenol Extra Strength) 500 Mg Tablet, 1,000 MG PO Q8H PRN for PAIN-MILD (1-4), (Reported) Entered as Reported by: OWEN FLORES on 08/13/21 1106 Acetaminophen (Tylenol Extra Strength) 500 Mg Tablet, 500 MG PO Q12H PRN for TEMPERATURE, (Reported) Entered as Reported by: OWEN FLORES on 08/13/21 1106 Apixaban (Eliquis) 5 Mg Tablet, 5 MG PO BID, (Reported) Entered as Reported by: BERNABE WYMAN on 09/03/17 1014 Baclofen (Baclofen) 10 Mg Tablet, 10 MG PO TID, (Reported) Entered as Reported by: OWEN FLORES on 08/13/211105 Bisacodyl (Bisacodyl) 10 Mg Supp.rect, 10 MG RC DAILY PRN for CONSTIPATION-4TH LINE, (Reported) Entered as Reported by: OWEN FLORES on 08/13/211105 Carboxymethylcellulose Sodium (Refresh Tears) 0.5 % Drops, 1 DROP OU EVERY 1 HOUR PRN for DRY EYES, (Reported) Entered as Reported by: OWEN FLORES on 08/13/211105 Cyanocobalamin (Cyanocobalamin Injection) 1,000 Mcg/Ml Inj, 1,000 MCG SC MON, (Reported) Entered as Reported by: OWEN FLORES on 08/13/211105 Cyclobenzaprine HCl (Cyclobenzaprine HCl) 5 Mg Tablet, 5 MG PO Q6H PRN for MUSCLE SPASMS, (Reported) Entered as Reported by: OWEN FLORES on 08/13/211105 Diphenhydramine HCl (Benadryl Allergy) 25 Mg Tablet, 50 MG PO Q6H PRN for RASH, (Reported) Entered as Reported by: OWEN FLORES on 08/13/211105 Dutasteride (Avodart) 0.5 Mg Cap, 0.5 MG PO DAILY, (Reported) Entered as Reported by: BERNABE WYMAN on 09/03/17 1014 Gabapentin (Neurontin) 300 Mg Capsule, 300 MG PO BID, (Reported) Entered as Reported by: OWEN FLORES on 08/13/21 110 Levofloxacin (Levofloxacin) 500 Mg Tablet, 500 MG PO DAILY Prescribed by: ELENA GARCIA on 08/14/21 1254 Magnesium Hydroxide (Milk of Magnesia) 400 Mg/5 Ml Oral.susp, 15-30 ML PO Q6H PRN for CONSTIPATION-7TH LINE, (Reported) Entered as Reported by: OWEN FLORES on 08/13/21 110 Ondansetron HCl (Ondansetron HCl) 4 Mg Tablet, 4 MG PO Q6H PRN for NAUS EA/VOMITING-1ST LINE, (Reported) Entered as Reported by: OWEN FLORES on 08/13/21 110 Polyethylene Glycol 3350 (Miralax) 17 Gram Powd.pack, 17 GM PO DAILY, (Reported) Entered as Reported by: OWEN FLORES on 08/13/211105 Pravastatin Sodium (Pravastatin Sodium) 40 Mg Tablet, 40 MG PO HS, (Reported) Entered as Reported by: OWEN FLORES on 08/13/211105 Risperidone (Risperidone) 0.5 Mg Tablet, 0.5 MG PO TID, (Reported) Entered as Reported by: OWEN FLORES on 08/13/211105 Sennosides/Docusate Sodium (Senna S Tablet) 8.6 Mg-50 Mg Tablet, 2 EACH PO BID, (Reported) Entered as Reported by: OWEN FLORES on 08/13/211105 Sertraline HCl (Sertraline HCl) 50 Mg Tablet, 50 MG PO HS, (Reported) Entered as Reported by: OWEN FLORES on 08/13/211105 Tamsulosin HCl (Flomax) 0.4 Mg Cap, 0.4 MG PO DAILY, (Reported) Entered as Reported by: OWEN FLORES on 08/13/211105 Review of Systems Review of Systems Constitutional: see HPI Respiratory: see HPI Cardiovascular: see HPI Gastrointestinal: no symptoms reported Genitourinary: see HPI Musculoskeletal: no symptoms reported Skin: no symptoms reported Psychiatric/Neurological: No Symptoms Reported Past Gnniiqm-Cvzbze-Bprres Hx Immunizations Up To Date Tetanus Booster (TDap): Unknown Seasonal Allergies Seasonal Allergies: Yes Past Medical History Surgeries: Yes Gallbladder Respiratory: No Cardiac: Yes Atrial Fibrillation, Heart Murmur Neurological: No Genitourinary: Yes UTI-Chronic Gastrointestinal: No Musculoskeletal: Yes (STENOSIS OF THE SPINE) Foot Drop Endocrine: Yes (THYROID ISSUES) HEENT: Yes Cataract Psychosocial: No Integumentary: Yes Psoriasis Physical Exam Vital Signs Vital Signs - First Documented Capillary Refill : Height, Weight, BMI Height: 5'5.00" Weight: 152lbs. oz. [id number]; 24.21 BMI Method:Stated General Appearance: Chronically ill, Other (obviously ill ) Respiratory: Lungs Clear, Other (course upper airway sounds ) Cardiovascular: No Edema, Tachycardia Gastrointestinal: Non Tender, Soft Genital/Rectal: Other (gross hematuria in laureano. ) Extremity: Other (baseline contractures ) Neurologic/Psychiatric: Other (lethargic, will respond to stimuli) Focused Exam Sepsis Stage: Severe Sepsis Possible Source: Genitouriary Lactate Level 10/09/21 05:34: Lactic Acid Level 6.44*H 10/09/21 06:19: Lactic Acid Level 5.60*H Time of Focused Exam: 07:33 Respiratory: Normal Breath Sounds Cardiovascular: Tachycardia Capillary Refill: Less Than 3 Seconds Skin: normal color, warm/dry Lactic Acid Level Laboratory Tests Test 10/09/21 05:34 10/09/21 06:19 Lactic Acid Level 6.44 MMOL/L (0.50-2.00) *H 5.60 MMOL/L (0.50-2.00) *H Within 3hrs of presentation: Admin fluids, Admin ABX, Blood cultures prior to ABX's, Focus exam, Lactate level Progress/Results/Core Measures Suspected Sepsis SIRS Temperature: Pulse: Respiratory Rate: Laboratory Tests 10/09/21 05:34: White Blood Count 22.5H Blood Pressure / Mean: 10/09/21 05:34: Lactic Acid Level 6.44*H 10/09/21 06:19: Lactic Acid Level 5.60*H Laboratory Tests 10/09/21 05:34: Creatinine 2.34H, Platelet Count 193, Total Bilirubin 0.5 Results/Orders Lab Results Laboratory Tests Test 10/09/21 05:34 10/09/21 06:19 Range/Units White Blood Count 22.5 H 4.3-11.0 10^3/uL Red Blood Count 4.80 4.30-5.52 10^6/uL Hemoglobin 14.3 13.3-17.7 g/dL Hematocrit 43 40-54 % Mean Corpuscular Volume 90 80-99 fL Mean Corpuscular Hemoglobin 30 25-34 pg Mean Corpuscular Hemoglobin Concent 33 32-36 g/dL Red Cell Distribution Width 16.8 H 10.0-14.5 % Platelet Count 193 130-400 10^3/uL Mean Platelet Volume 10.9 9.0-12.2 fL Immature Granulocyte % (Auto) 1 % Neutrophils (%) (Auto) 88 H 42-75 % Lymphocytes (%) (Auto) 4 L 12-44 % Monocytes (%) (Auto) 7 0-12 % Eosinophils (%) (Auto) 0 0-10 % Basophils (%) (Auto) 0 0-10 % Neutrophils # (Auto) 19.7 H 1.8-7.8 10^3/uL Lymphocytes # (Auto) 0.9 L 1.0-4.0 10^3/uL Monocytes # (Auto) 1.6 H 0.0-1.0 10^3/uL Eosinophils # (Auto) 0.0 0.0-0.3 10^3/uL Basophils # (Auto) 0.0 0.0-0.1 10^3/uL Immature Granulocyte # (Auto) 0.2 H 0.0-0.1 10^3/uL Neutrophils % (Manual) 71 % Lymphocytes % (Manual) 2 % Monocytes % (Manual) 6 % Myelocytes % 1 % Band Neutrophils 18 % Atypical Lymphocytes 1 % Reactive Lymphocytes 1 % Platelet Estimate NORMAL Blood Morphology Comment NORMAL Sodium Level 136 135-145 MMOL/L Potassium Level 6.7 #*H 5.0 3.6-5.0 MMOL/L Chloride Level 99 98-107 MMOL/L Carbon Dioxide Level 16 L 21-32 MMOL/L Anion Gap 21 H 5-14 MMOL/L Blood Urea Nitrogen 51 H 7-18 MG/DL Creatinine 2.34 H 0.60-1.30 MG/DL Estimat Glomerular Filtration Rate 29 BUN/Creatinine Ratio 22 Glucose Level 158 H 70-105 MG/DL Lactic Acid Level 6.44 *H 5.60 *H 0.50-2.00 MMOL/L Calcium Level 9.1 8.5-10.1 MG/DL Corrected Calcium 9.4 8.5-10.1 MG/DL Magnesium Level 2.1 1.6-2.4 MG/DL Total Bilirubin 0.5 0.1-1.0 MG/DL Aspartate Amino Transf (AST/SGOT) 48 H 27 5-34 U/L Alanine Aminotransferase (ALT/SGPT) 24 0-55 U/L Alkaline Phosphatase 78 40-136 U/L Total Protein 7.5 6.4-8.2 GM/DL Albumin 3.6 3.2-4.5 GM/DL My Orders Orders - CHO,FRANSICO L DO Cbc With Automated Diff (10/09/21 05:26) Comprehensive Metabolic Panel (10/09/21 05:26) Lactic Acid Analyzer (10/09/21 05:26) Magnesium (10/09/21 05:26) Type And Screen (10/09/21 05:26) Ct Abdomen/Pelvis W (10/09/21 05:26) Chest 1 View Ap/Pa Only (10/09/21 05:26) Ekg Tracing (10/09/21 05:38) Monitor-Rhythm Ecg Trace Only (10/09/21 05:38) Blood Culture (10/09/21 05:40) Fentanyl Inj (Sublimaze Injection) (10/09/21 05:40) Manual Differential (10/09/21 05:34) Meropenem (Merrem 500 Mg) (10/09/21 06:00) Lactated Ringers (Lr 1000 Ml Iv Solution (10/09/21 05:57) Iohexol Injection (Omnipaque 350 Mg/Ml 1 (10/09/21 06:15) Received Contrast (Hold Metformin- Contr (10/09/21 06:15) Ns (Ivpb) (Sodium Chloride 0.9% Ivpb Bag (10/09/21 06:15) Ketorolac Injection (Toradol Injection) (10/09/21 06:08) Ed Iv/Invasive Line Start (10/09/21 06:30) Aspartate Amino Transferase (10/09/21 06:19) Potassium (10/09/21 06:19) Lactic Acid Analyzer (10/09/21 06:19) Medications Given in ED Current Medications Medications Dose Ordered Sig/Olman Route Start Time Stop Time Status Last Admin Dose Admin Iohexol 100 ml ONCE ONCE IV 10/09/21 06:15 10/09/21 06:16 DC 10/09/21 06:05 100 ML Meropenem 500 mg/ Sodium Chloride 100 ml @ 200 mls/hr ONCE ONCE IV 10/09/21 06:00 10/09/21 06:29 DC 10/09/21 06:06 200 MLS/HR Sodium Chloride 100 ml ONCE ONCE IV 10/09/21 06:15 10/09/21 06:16 DC 10/09/21 06:05 100 ML Vital Signs/I&O 10/09/21 10/09/21 05:19 05:19 Temp 39.3 Pulse 127 Resp 35 B/P (MAP) 115/97 (103) Pulse Ox 98 O2 Delivery Non Rebreather Non Rebreather O2 Flow Rate 15.00 10.00 Capillary Refill : Progress Note : Progress Note Patient with worsening acute cystitis with hematuria. Patient with a large amount of blood in his bladder per CT. I did call and discussed with patient's medical power of real estate attorney. Patient was initially DNR upon arrival. However they do not want him intubated or any excessive or overaggressive care. They would like him to be treated with antibiotics IV fluid and reasonable care. I called and discussed with Dr. Canada who accepted patient to [facility] ICU. Patient is given 2 L IV fluid here in the ER along with meropenem. Patient's fever was treated. He remained stable throughout his stay here with improvement of his heart rate ECG Initial ECG Impression Date: Oct 09, 2021 Initial ECG Impression Time: 05:42 Initial ECG Rate: 131 Initial ECG Rhythm: A Fib/Flutter Initial ECG Impression: Nonspecific Changes, Atrial Fibrillation w/RVR Comment afib avir, non specific changes Diagnostic Imaging Diagonstic Imaging: CT Plain Films/CT/US/NM/MRI: abdomen Comments CT ABDOMEN/PELVIS W PROCEDURE: CT abdomen and pelvis with contrast. TECHNIQUE: Multiple contiguous axial images were obtained through the abdomen and pelvis after administration of intravenous contrast. Auto Exposure Controls were utilized during the CT exam to meet ALARA standards for radiation dose reduction. All CT scans use one or more of the following dose optimizing techniques: automated exposure control, MA and/or KvP adjustment based on patient size and exam type or iterative reconstruction. DATE: October 09, 2021. COMPARISON: None. INDICATION: 71-year-old male, blood loss after restarting Laureano catheter. FINDINGS: There is respiratory motion artifact. There is a small right pleural effusion. There are dependent opacities in the right left lower lobes which may reflect atelectasis. The heart is not enlarged. There is no identified pericardial effusion. There is elevation of the right hemidiaphragm. The liver is not nodular in outer contour. There is no identified liver lesion. The main, right, and left portal veins are patent. The gallbladder is surgically absent. There is no biliary ductal dilation. Unremarkable appearance of the pancreas. The spleen is not enlarged. The adrenal glands are unremarkable. There is an exophytic low-attenuation right renal lesion on axial image 96 measuring 1.4 cm in size. Internal attenuation measures 14 Hounsfield units. This is very likely benign cyst although does not meet strict definite diagnostic criteria. There is a similar-appearing left renal lesion measuring 3.0 cm on axial image 95. There is moderate bilateral hydroureteronephrosis. There is no identified renal or ureteral stone. There is a Laureano catheter in the urinary bladder. There is high attenuation material layering in the urinary bladder which is very likely blood products. There is no CT apparent wall thickening of the urinary bladder. There is a soft tissue attenuation prominence near the level of the urethra inferior to the prostate which is centered to the right of the Laureano catheter. There is a potential fluid/fluid level on axial image 2-37. This measures 4.1 x 2.4 cm in size. There is a large volume stool in the rectum which is mild to moderately distended. The intestinal tract is otherwise not distended. There is no free intraperitoneal air. There is no drainable fluid collection. There are atherosclerotic calcifications. There is no identified abnormally enlarged lymph node in the abdomen or pelvis meeting CT size criteria for adenopathy. There are multilevel advanced degenerative changes of the spine. IMPRESSION: CT ABDOMEN AND PELVIS. 1. Moderate bilateral hydroureteronephrosis without identified renal or ureteral stone. There is likely sizable amount of blood product layering in the urinary bladder. This could obscure a urinary bladder lesion. No generalized urinary bladder wall thickening apparent On CT. 2. Masslike prominence centered to the right of the Laureano catheter at the level of the urethra inferior to the prostate gland with probable fluid fluid level concerning for hematoma. 3. Large volume stool in the rectum which is mild to moderately distended. Critical Care Note Critical Care Total Time (minutes) 30 min Departure Impression Primary Impression: Sepsis Qualified Codes: A41.9 - Sepsis, unspecified organism; R65.20 - Severe sepsis without septic shock; N17.9 - Acute kidney failure, unspecified Additional Impression: Cystitis with hematuria Disposition: XF T-[facility] Condition: Stable Transfer Transfer Reason: Diversion Time Spoke to Accepting Phy: 07:20 Transfer Progress Notes Patient to be transferred to [facility] accepting Dr. Canada Transfer Facility: [facility] Method of Transfer: EMS Departure-Patient Inst. Referrals: SELF,DANNA OSCAR (PCP/Family) Primary Care Physician FRANSICO CHO DO Oct 09, 2021 05:25
[2021-10-09] MEDS ORDERED: fentaNYL INJ 100 MCG/2 ML AMP IVP STA (05:40)
[2021-10-09 05:42] LABS: BASOPHILS % (AUTO) 0 % (0-10); EOSINOPHILS % (AUTO) 0 % (0-10); HEMATOCRIT 43 % (40-54); HEMOGLOBIN 14.3 g/dL (13.3-17.7); LYMPHOCYTES # (AUTO) 0.9 10^3/uL (1.0-4.0); LYMPHOCYTES % (AUTO) 4 % (12-44); MEAN CORPUSCULAR HEMOGLOBIN 30 pg (25-34); MEAN CORPUSCULAR HGB CONC 33 g/dL (32-36); MEAN CORPUSCULAR VOLUME 90 fL (80-99); MEAN PLATELET VOLUME 10.9 fL (9.0-12.2); MONOCYTES # (AUTO) 1.6 10^3/uL (0.0-1.0); MONOCYTES % (AUTO) 7 % (0-12); NEUTROPHILS # (AUTO) 19.7 10^3/uL (1.8-7.8); NEUTROPHILS % (AUTO) 88 % (42-75); PLATELET COUNT 193 10^3/uL (130-400); WHITE BLOOD COUNT 22.5 10^3/uL (4.3-11.0)
[2021-10-09] MEDS ORDERED: LACTATED RINGERS 1,000 ML IV STA (05:57)
[2021-10-09] MEDS ORDERED: MEROPENEM 500 MG in NS (IVPB) 100 ML IV ONE (06:00)
[2021-10-09] MEDS ORDERED: KETOROLAC 30 MG/ML VIAL IVP STA (06:08)
[2021-10-09 06:11] LABS: BILIRUBIN,TOTAL 0.5 MG/DL (0.1-1.0); CALCIUM 9.1 MG/DL (8.5-10.1); CREATININE SERUM 2.34 MG/DL (0.60-1.30); MAGNESIUM 2.1 MG/DL (1.6-2.4)
[2021-10-09 06:12] LABS: ALBUMIN 3.6 GM/DL (3.2-4.5); TOTAL PROTEIN 7.5 GM/DL (6.4-8.2)
[2021-10-09 06:14] LABS: POTASSIUM 6.7 MMOL/L (3.6-5.0)
[2021-10-09] MEDS ORDERED: IOHEXOL 350 MG/ML 100 ML (OMNIPAQUE 350) VIAL IV ONE (06:15)
[2021-10-09] MEDS ORDERED: HOLD METFORMIN - RECEIVED CONTRAST 20 ML VIAL IV SCH (06:15)
[2021-10-09] MEDS ORDERED: NS 100 ML (IVPB) BAG IV ONE (06:15)
[2021-10-09 06:41] LABS: ATYPICAL LYMPHOCYTES 1 %; BAND NEUTROPHILS 18 %; LYMPHOCYTES % (MANUAL) 2 %; MONOCYTES % (MANUAL) 6 %; MYELOCYTES % 1 %; NEUTROPHILS % (MANUAL) 71 %; REACTIVE LYMPHOCYTES 1 %
[2021-10-09 06:42] LABS: PLATELET ESTIMATE NORMAL; RBC MORPH NORMAL
--- NOTE | 2021-10-09 06:59 | Diagnostic Imaging Report ---
PROCEDURE: CT abdomen and pelvis with contrast. TECHNIQUE: Multiple contiguous axial images were obtained through the abdomen and pelvis after administration of intravenous contrast. Auto Exposure Controls were utilized during the CT exam to meet ALARA standards for radiation dose reduction. All CT scans use one or more of the following dose optimizing techniques: automated exposure control, MA and/or KvP adjustment based on patient size and exam type or iterative reconstruction. DATE: October 09, 2021. COMPARISON: None. INDICATION: 71-year-old male, blood loss after restarting Bañuelos catheter. FINDINGS: There is respiratory motion artifact. There is a small right pleural effusion. There are dependent opacities in the right left lower lobes which may reflect atelectasis. The heart is not enlarged. There is no identified pericardial effusion. There is elevation of the right hemidiaphragm. The liver is not nodular in outer contour. There is no identified liver lesion. The main, right, and left portal veins are patent. The gallbladder is surgically absent. There is no biliary ductal dilation. Unremarkable appearance of the pancreas. The spleen is not enlarged. The adrenal glands are unremarkable. There is an exophytic low-attenuation right renal lesion on axial image 96 measuring 1.4 cm in size. Internal attenuation measures 14 Hounsfield units. This is very likely benign cyst although does not meet strict definite diagnostic criteria. There is a similar-appearing left renal lesion measuring 3.0 cm on axial image 95. There is moderate bilateral hydroureteronephrosis. There is no identified renal or ureteral stone. There is a Bañuelos catheter in the urinary bladder. There is high attenuation material layering in the urinary bladder which is very likely blood products. There is no CT apparent wall thickening of the urinary bladder. There is a soft tissue attenuation prominence near the level of the urethra inferior to the prostate which is centered to the right of the Bañuelos catheter. There is a potential fluid/fluid level on axial image 2-37. This measures 4.1 x 2.4 cm in size. There is a large volume stool in the rectum which is mild to moderately distended. The intestinal tract is otherwise not distended. There is no free intraperitoneal air. There is no drainable fluid collection. There are atherosclerotic calcifications. There is no identified abnormally enlarged lymph node in the abdomen or pelvis meeting CT size criteria for adenopathy. There are multilevel advanced degenerative changes of the spine. IMPRESSION: CT ABDOMEN AND PELVIS. 1. Moderate bilateral hydroureteronephrosis without identified renal or ureteral stone. There is likely sizable amount of blood product layering in the urinary bladder. This could obscure a urinary bladder lesion. No generalized urinary bladder wall thickening apparent On CT. 2. Masslike prominence centered to the right of the Bañuelos catheter at the level of the urethra inferior to the prostate gland with probable fluid fluid level concerning for hematoma. 3. Large volume stool in the rectum which is mild to moderately distended. Dictated by: Dictated on workstation # [id number]
--- NOTE | 2021-10-09 07:06 | Diagnostic Imaging Report ---
EXAMINATION: Chest radiograph, portable AP view. DATE: 10/09/2021 6:07 AM INDICATION: 71-year-old male, blood loss after restarting Bañuelos catheter. COMPARISON: August 12, 2021. FINDINGS: Heart size and mediastinal contours are grossly unchanged. There is no identified pneumothorax. There is no large pleural effusion. There is no identified focal airspace consolidation. There are right upper quadrant surgical clips. Lung volumes are low. There is elevation of the right hemidiaphragm. IMPRESSION: 1. Low lung volumes without identified acute cardiac pulmonary abnormality. Dictated by: Dictated on workstation # [id number]
[2021-10-09 08:30] VITALS: BP 86/59
== END 2021-10-09 08:30 | disposition short-term general hospital (02) ==
LOC: EDUNIT# 05:17 → ER FS 05:21
DX: A41.9 Sepsis, unspecified organism (principal); N30.91 Cystitis, unspecified with hematuria; Z87.440 Personal history of urinary (tract) infections
CPT/HCPCS: 36415; 71045; 74177; 80053; 82947; 83605; 83735; 84132; 84450; 85007; 85027; 87040; 93005; 93041; Q9967